=== PATIENT | female | born 1980 | race Caucasian/White ===

== ENCOUNTER → 2017-03-21 | Outpatient (CLI) | payer OTHER ==
[2017-03-21 21:13] LABS: ALT 43 U/L (9-52); AST 26 U/L (14-36); Alkaline Phosphatase 114 U/L (38-126); Anion Gap 16 mmol/L; Blood Urea Nitrogen 14 mg/dL (7-17); Calcium 10.1 mg/dL (8.4-10.2); Carbon Dioxide 23 mmol/L (22-30); Chloride 98 mmol/L (98-107); Glucose 419 mg/dL (74-99); Magnesium 1.5 mg/dL (1.6-2.3); Non-African American GFR(MDRD) >60 (>60 ml/min/1.73 sqM); Potassium 4.3 mmol/L (3.5-5.1); Sodium 137 mmol/L (137-145); Total Bilirubin 0.6 mg/dL (0.2-1.3); Total Protein 7.6 g/dL (6.3-8.2)
== END ==
LOC: MMGSC 14:12
PROVIDERS: ATTEND Family Medicine
DX: R00.2 Palpitations (principal)
CPT/HCPCS: 36415; 80053; 83735; 84439; 84443

== ENCOUNTER 2017-07-18 09:43 | Emergency (ER) | payer MEDICAID, OTHER ==
[2017-07-18] MEDS ORDERED: SODIUM CHLORIDE 0.9% 1,000 ML IV STA ×2 (10:39)
[2017-07-18] MEDS ORDERED: ONDANSETRON 4 MG/2 ML VIAL IVP STA (10:39)
[2017-07-18] MEDS ORDERED: KETOROLAC 30 MG/ML 1 ML VIAL IVP STA (10:39)
--- NOTE | 2017-07-18 10:44 | ED ---
Abdominal Pain HPI - General Chief Complaint: Urogenital Stated Complaint: Abd Pain Time Seen by Provider: 07/18/17 10:34 Source: patient Mode of arrival: ambulatory Limitations: no limitations - History of Present Illness Initial Comments: This 37-year-old white female presents with a complaint of some abdominal pain. It is more severe in the suprapubic region but also diffuse. She has had some frequency, urgency, and dysuria as well. She denies any flank pain. She denies any known fever at home but states that she gets hot flashes. She has been nauseated and vomited once this morning. The symptom onset started yesterday but is more severe today. She denies any previous similar incidents. She is a diabetic and just got her insulin pump 3 months ago. She denies any possibility of as she had a hysterectomy. No other complaints or modifying factors. - Related Data Home Medications Medication Instructions Recorded Confirmed Insulin Aspart [NovoLOG] See Protocol SQ ACHS PRN 07/18/17 07/18/17 Previous Rx's Medication Instructions Recorded Ciprofloxacin HCl [Cipro] 500 mg PO Q12HR #20 tablet 07/18/17 Ondansetron [Zofran ODT] 8 mg PO Q8HR PRN #12 tab 07/18/17 traMADol HCl [Ultram] 50 - 100 mg PO Q6H PRN #15 tab 07/18/17 Allergies Allergy/AdvReac Type Severity Reaction Status Date / Time No Known Allergies Allergy Verified 07/18/17 10:36 Review of Systems ROS Statement: Those systems with pertinent positive or pertinent negative responses have been documented in the HPI. ROS Other: All systems not noted in ROS Statement are negative. Past Medical History Past Medical History: Diabetes Mellitus, GERD/Reflux, Hyperlipidemia, Hypertension Additional Past Medical History / Comment(s): heart murmur History of Any Multi-Drug Resistant Organisms: None Reported Past Surgical History: Tubal Ligation Additional Past Surgical History / Comment(s): E-P study Past Anesthesia/Blood Transfusion Reactions: No Reported Reaction Past Psychological History: No Psychological Hx Reported Smoking Status: Never smoker Past Alcohol Use History: None Reported Past Drug Use History: None Reported - Past Family History Mother Family Medical History: Cancer Father Family Medical History: Deep Vein Thrombosis (DVT) General Exam - General Exam Comments Initial Comments: GENERAL: The patient is well nourished and well hydrated. VITAL SIGNS: Heart rate, blood pressure, respiratory rate reviewed as recorded in nurse's notes. EYES: Pupils are round and reactive. Extraocular movements are intact. No conjunctival / lid redness or swelling. ENT: No external evidence of injury, swelling, or ecchymosis. Airway is patent. Throat is clear. NECK: Nontender. No swelling or evidence of injury. No subcutaneous emphysema. Trachea is midline. No thyroid mass. HEART: Regular rate and rhythm. Good peripheral pulses. LUNGS/CHEST: Breath sounds clear and equal bilaterally. No rales, rhonchi, or wheezes. No ecchymosis, subcutaneous emphysema, or tenderness. ABDOMEN: There is mild diffuse tenderness to the abdomen which is more severe in the suprapubic region. No flank tenderness. No palpable masses or organomegaly. No peritoneal signs. No abdominal wall swelling or ecchymosis. EXTREMITIES: No extremity tenderness. Normal muscle tone and function. No thoracolumbar tenderness. NEUROLOGIC: Sensation is grossly intact. Cranial nerve exam reveals face is symmetrical, tongue is midline, speech is clear. SKIN: No abrasions or ecchymosis is noted. No induration or masses noted. PSYCHIATRIC: Alert and oriented. Appropriate behavior and judgment. Limitations: no limitations Course Vital Signs 07/18/17 10:12 Temperature 99.9 F H Pulse Rate 95 Respiratory 18 Rate Blood Pressure 149/86 O2 Sat by Pulse 97 Oximetry Medical Decision Making - Medical Decision Making The patient was seen and examined. An IV is started and she is hydrated. She receives some Toradol, Zofran, and Rocephin. She is feeling improved on recheck. The urine came back showing significant evidence of infection. The white blood cell count also is elevated. This felt as though she has a urinary tract infection but is stable for discharge home. She also had an x-ray of her abdomen which does not show any acute process. She leaves in no severe distress. - Lab Data Result diagrams: 07/18/17 11:00 07/18/17 11:00 Lab Results 07/18/17 07/18/17 07/18/17 Range/Units 11:00 11:00 11:00 WBC 16.7 H (3.8-10.6) k/uL RBC 4.79 (3.80-5.40) m/uL Hgb 14.0 (11.4-16.0) gm/dL Hct 39.6 (34.0-46.0) % MCV 82.6 (80.0-100.0) fL MCH 29.3 (25.0-35.0) pg MCHC 35.4 (31.0-37.0) g/dL RDW 13.3 (11.5-15.5) % Plt Count 322 (150-450) k/uL Neutrophils % 80 % Lymphocytes % 12 % Monocytes % 4 % Eosinophils % 2 % Basophils % 0 % Neutrophils # 13.4 H (1.3-7.7) k/uL Lymphocytes # 2.0 (1.0-4.8) k/uL Monocytes # 0.7 (0-1.0) k/uL Eosinophils # 0.4 (0-0.7) k/uL Basophils # 0.1 (0-0.2) k/uL Sodium 140 (137-145) mmol/L Potassium 4.2 (3.5-5.1) mmol/L Chloride 106 (98-107) mmol/L Carbon Dioxide 23 (22-30) mmol/L Anion Gap 11 mmol/L BUN 13 (7-17) mg/dL Creatinine 0.63 (0.52-1.04) mg/dL Est GFR (MDRD) Af Amer >60 (>60 ml/min/1.73 sqM) Est GFR (MDRD) Non-Af >60 (>60 ml/min/1.73 sqM) Glucose 135 H (74-99) mg/dL Calcium 9.6 (8.4-10.2) mg/dL Total Bilirubin 0.6 (0.2-1.3) mg/dL AST 21 (14-36) U/L ALT 42 (9-52) U/L Alkaline Phosphatase 103 (38-126) U/L Total Protein 7.4 (6.3-8.2) g/dL Albumin 4.4 (3.5-5.0) g/dL Amylase 34 (30-110) U/L Lipase 78 (23-300) U/L Urine Color Light Yellow Urine Appearance Cloudy H (Clear) Urine pH 5.5 (5.0-8.0) Ur Specific [place] 1.012 (1.001-1.035) Urine Protein 1+ H (Negative) Urine Glucose (UA) Negative (Negative) Urine Ketones Negative (Negative) Urine Blood Moderate H (Negative) Urine Nitrite Positive H (Negative) Urine Bilirubin Negative (Negative) Urine Urobilinogen <2.0 (<2.0) mg/dL Ur Leukocyte Esterase Large H (Negative) Urine RBC 3 (0-5) /hpf Urine WBC 122 H (0-5) /hpf Urine WBC Clumps Many H (None) /hpf Ur Squamous Epith Cells 2 (0-4) /hpf Urine Bacteria Moderate H (None) /hpf Urine Mucus Rare H (None) /hpf Disposition Clinical Impression: Urinary tract infection, Fever, Abdominal pain, Hypertension, Nausea Disposition: HOME SELF-CARE Condition: Good Instructions: Abdominal Pain (ED), Urinary Tract Infection in Women (ED) Prescriptions: Ciprofloxacin HCl [Cipro] 500 mg PO Q12HR #20 tablet Ondansetron [Zofran ODT] 8 mg PO Q8HR PRN #12 tab PRN Reason: Nausea traMADol HCl [Ultram] 50 - 100 mg PO Q6H PRN #15 tab PRN Reason: Pain Referrals: Gayle Rouse MD [Primary Care Provider] - 1-2 days Time of Disposition: 11:50
[2017-07-18 11:20] LABS: Basophils # (A) 0.1 k/uL (0-0.2); Basophils % (A) 0 %; CH 28.9; CHCM 35.1; Eosinophils # (A) 0.4 k/uL (0-0.7); Eosinophils % (A) 2 %; HCT 39.6 % (34.0-46.0); Luc # (Auto) 0.13; Luc % (Auto) 1; Lymphocytes % (A) 12 %; MCH 29.3 pg (25.0-35.0); MCHC 35.4 g/dL (31.0-37.0); MCV 82.6 fL (80.0-100.0); Mean Platelet Volume 8.1; Monocytes # (A) 0.7 k/uL (0-1.0); Monocytes % (A) 4 %; Neutrophils # (A) 13.4 k/uL (1.3-7.7); Neutrophils % (A) 80 %; RBC 4.79 m/uL (3.80-5.40); RDW 13.3 % (11.5-15.5); WBC 16.7 k/uL (3.8-10.6); WBC (Perox) 16.81
[2017-07-18 11:27] LABS: ALT 42 U/L (9-52); AST 21 U/L (14-36); Alkaline Phosphatase 103 U/L (38-126); Amylase 34 U/L (30-110); Anion Gap 11 mmol/L; Blood Urea Nitrogen 13 mg/dL (7-17); Calcium 9.6 mg/dL (8.4-10.2); Carbon Dioxide 23 mmol/L (22-30); Chloride 106 mmol/L (98-107); Glucose 135 mg/dL (74-99); Non-African American GFR(MDRD) >60 (>60 ml/min/1.73 sqM); Potassium 4.2 mmol/L (3.5-5.1); Sodium 140 mmol/L (137-145); Total Bilirubin 0.6 mg/dL (0.2-1.3); Total Protein 7.4 g/dL (6.3-8.2)
--- NOTE | 2017-07-18 11:32 | XR ---
EXAMINATION TYPE: XR abdomen acute w cxr DATE OF EXAM: 07/18/2017 COMPARISON: NONE HISTORY: Abdomen pain TECHNIQUE: Chest x-ray, upright and supine films obtained of the abdomen. FINDINGS: Chest x-ray shows no acute cardiopulmonary disease is rotated. There is no evidence for pneumoperitoneum. The bowel gas pattern is unremarkable as there is air throughout nondilated small and large bowel. No sizeable air fluid levels. No mass effects are seen. No unusual calcifications. There is mild spinal curvature, degenerative disc changes in the lumbar s pine. IMPRESSION: Unremarkable study
[2017-07-18 11:37] LABS: Appearance,Urine Cloudy (Clear); Bacteria,Urine Moderate /hpf; Bilirubin,Urine Negative (Negative); Glucose,Urine (UA) Negative (Negative); Ketones,Urine Negative (Negative); Leukocyte Esterase,Urine Large (Negative); Mucus,Urine Rare /hpf; Nitrite,Urine Positive (Negative); PH, Urine 5.5 (5.0-8.0); Particle Count 6186; Protein,Urine 1+ (Negative); RBC,Urine 3 /hpf (0-5); Specific Gravity,Urine 1.012 (1.001-1.035); Squamous Epithelial Cell,Urine 2 /hpf (0-4); UA Billing (MACRO vs. MICRO) MICRO; Urobilinogen,Urine <2.0 mg/dL (<2.0); WBC,Urine 122 /hpf (0-5)
[2017-07-18 12:19] VITALS: BP 139/68; PULSE 59; RESP 20; TEMP 98.7
== END 2017-07-18 12:26 | disposition home or self-care (01) ==
LOC: EC 09:43
DX: N39.0 Urinary tract infection, site not specified (principal); R11.2 Nausea with vomiting, unspecified; I10 Essential (primary) hypertension; E11.9 Type 2 diabetes mellitus without complications; Z98.51 Tubal ligation status; Z90.710 Acquired absence of both cervix and uterus; Z96.41 Presence of insulin pump (external) (internal)
CPT/HCPCS: 36415; 80053; 82150; 83690; 85025; 81001; 87040; 87086; 87077; 87186; 74022; 99284; 96365; 96375 ×2; J2405; J0696; J1885

== ENCOUNTER → 2017-07-22 | Outpatient (CLI) | payer MEDICAID, OTHER ==
[2017-07-22 19:56] LABS: Basophils # (A) 0.1 k/uL (0-0.2); Basophils % (A) 1 %; CH 28.8; CHCM 33.6; Eosinophils # (A) 0.5 k/uL (0-0.7); Eosinophils % (A) 6 %; HDW 2.87; HGB 14.4 gm/dL (11.4-16.0); Luc # (Auto) 0.09; Luc % (Auto) 1; Lymphocytes # (A) 2.5 k/uL (1.0-4.8); Lymphocytes % (A) 30 %; MCH 28.9 pg (25.0-35.0); MCHC 33.4 g/dL (31.0-37.0); MCV 86.4 fL (80.0-100.0); Mean Platelet Volume 8.7; Monocytes # (A) 0.4 k/uL (0-1.0); Monocytes % (A) 5 %; Neutrophils % (A) 58 %; RBC 4.97 m/uL (3.80-5.40); RDW 13.4 % (11.5-15.5); WBC 8.6 k/uL (3.8-10.6); WBC (Perox) 8.12
[2017-07-22 20:10] LABS: ALT 54 U/L (9-52); AST 31 U/L (14-36); Alkaline Phosphatase 106 U/L (38-126); Anion Gap 12 mmol/L; Blood Urea Nitrogen 12 mg/dL (7-17); Calcium 9.9 mg/dL (8.4-10.2); Carbon Dioxide 24 mmol/L (22-30); Chloride 104 mmol/L (98-107); Cholesterol 276 mg/dL (<200); Glucose 118 mg/dL (74-99); HDL Cholesterol 29 mg/dL (40-60); Non-African American GFR(MDRD) >60 (>60 ml/min/1.73 sqM); Potassium 4.6 mmol/L (3.5-5.1); Sodium 140 mmol/L (137-145); Total Bilirubin 0.5 mg/dL (0.2-1.3); Total Protein 7.6 g/dL (6.3-8.2)
== END ==
LOC: MMGSC 11:34
PROVIDERS: ATTEND Family Medicine
DX: E78.5 Hyperlipidemia, unspecified (principal); N12 Tubulo-interstitial nephritis, not specified as acute or chronic
CPT/HCPCS: 36415; 80053; 80061; 85025

== ENCOUNTER → 2018-06-25 | Outpatient (CLI) | payer MEDICAID, OTHER ==
--- NOTE | 2018-06-25 22:34 | MR ---
EXAMINATION TYPE: MR knee RT wo con DATE OF EXAM: 06/25/2018 COMPARISON: Outside right knee x-ray May 12, 2018 HISTORY: Right knee pain per order. Inner knee pain with swelling for 2 to 3 months after running inj ury TECHNIQUE: Multiplanar, multisequence images of the knee is performed without IV contrast. FINDINGS: MEDIAL MENISCUS: Anterior and posterior horns are intact without tear. LATERAL MENISCUS: Anterior and posterior horns are intact without tear. CRUCIATE LIGAMENTS: The anterior and posterior cruciate ligaments are intact and unremarkable. COLLATERAL LIGAMENTS: The medial collateral ligament and lateral collateral ligament complex are inta ct and unremarkable. EXTENSOR MECHANISM: Visualized quadriceps and patellar tendons are intact. EFFUSION: No significant suprapatellar joint effusion. POPLITEAL CYST: There is small to moderate size popliteal/[place] cyst measuring 4.3 cm long axis sagit antony image 10. TRICOMPARTMENT SPACES: Tricompartmental joint spaces are fairly well-maintained. No significant spurr ing is seen. CARTILAGE: Tricompartment articular cartilage is maintained. BONE MARROW SIGNAL: No focal abnormal marrow signal is appreciated. OTHER: No additional significant abnormality is appreciated. IMPRESSION: No meniscal or ligamentous tear is seen. Small to moderate sized popliteal cyst otherwise unremarkable study.
== END | disposition home or self-care (01) ==
LOC: RADMRIMAIN 16:27
PROVIDERS: ATTEND Orthopaedic Surgery
DX: M71.21 Synovial cyst of popliteal space [Baker], right knee (principal)

== ENCOUNTER → 2018-07-31 | Outpatient (CLI) | payer OTHER ==
--- NOTE | 2018-07-31 15:36 | XR ---
EXAMINATION TYPE: XR shoulder complete RT DATE OF EXAM: 07/31/2018 CLINICAL HISTORY: Right shoulder pain after pulling injury. TECHNIQUE: Three views of the right shoulder are obtained. COMPARISON: None. FINDINGS: There is no acute fracture/dislocation evident in the right shoulder. There is type II mimi nsloping acromion. There is mild to moderate joint space loss and mild spurring at acromioclavicular joint. There are subchondral cystic change in the superolateral humeral head. The visualized ribs are intact and unremarkable. IMPRESSION: There is no acute fracture or dislocation in the right shoulder.
== END | disposition home or self-care (01) ==
LOC: RADXRMAIN 15:19
PROVIDERS: ATTEND Emergency Medicine
DX: S43.401A Unspecified sprain of right shoulder joint, initial encounter (principal)

== ENCOUNTER → 2018-08-08 | Outpatient (CLI) | payer OTHER ==
--- NOTE | 2018-08-09 14:09 | MR ---
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 FINDINGS: Rotator Cuff: Small amount fluid is in the subdeltoid bursa. There is signal crossing the distal supr aspinatus tendon. Small perforation is likely present. No tendon or muscle retraction is evident. Acromioclavicular Joint: Hypertrophy with mild inferior impression. This can contribute to impingemen t syndrome. The acromion is downward sloping which also can contribute to impingement syndrome. Glenohumeral Joint: Humeral head articulates with the glenoid. Labrum: The labrum appears grossly intact given limitation of non-arthrogram study. Biceps Tendon: The long head of biceps is in normal location within bicipital groove. Bone marrow signal: No focal abnormal marrow signal is appreciated. Other: No additional significant abnormality is appreciated. IMPRESSION: Findings suggestive for a small perforation to the distal supraspinatus tendon. No tendon or muscle r etraction is evident. 2. Downward sloping acromion with mild acromioclavicular joint hypertrophy, each of which can contrib ritika to impingement syndrome.
== END | disposition home or self-care (01) ==
LOC: RADMRIMAIN 12:10
PROVIDERS: ATTEND Emergency Medicine
DX: M89.311 Hypertrophy of bone, right shoulder (principal)

== ENCOUNTER 2018-08-17 12:44 | Inpatient (IN) | payer MEDICAID, OTHER ==
[2018-08-17 14:59] LABS: Appearance,Urine Clear (Clear); Bilirubin,Urine Negative (Negative); Blood,Urine Trace (Negative); Color,Urine Light Yellow; Glucose,Urine (UA) 4+ (Negative); Leukocyte Esterase,Urine Negative (Negative); Mucus,Urine Rare /hpf; Nitrite,Urine Negative (Negative); PH, Urine 5.5 (5.0-8.0); Protein,Urine 1+ (Negative); RBC,Urine 1 /hpf (0-5); Squamous Epithelial Cell,Urine 1 /hpf (0-4); Urobilinogen,Urine <2.0 mg/dL (<2.0); WBC,Urine 1 /hpf (0-5)
[2018-08-17] MEDS ORDERED: SODIUM CHLORIDE 0.9% 1,000 ML IV ONE (14:59)
[2018-08-17 15:02] LABS: Ketones,Urine 4+ (Negative)
[2018-08-17 15:20] LABS: Basophils # (A) 0.1 k/uL (0-0.2); Basophils % (A) 0 %; Eosinophils # (A) 0.2 k/uL (0-0.7); Eosinophils % (A) 1 %; HCT 46.4 % (34.0-46.0); HGB 15.8 gm/dL (11.4-16.0); Lymphocytes # (A) 2.2 k/uL (1.0-4.8); Lymphocytes % (A) 14 %; MCHC 34.1 g/dL (31.0-37.0); MCV 82.2 fL (80.0-100.0); Monocytes # (A) 0.4 k/uL (0-1.0); Monocytes % (A) 3 %; Neutrophils # (A) 13.2 k/uL (1.3-7.7); Neutrophils % (A) 81 %; Platelet Count 378 k/uL (150-450); RBC 5.64 m/uL (3.80-5.40); RDW 13.2 % (11.5-15.5); WBC 16.3 k/uL (3.8-10.6)
[2018-08-17 15:34] LABS: ALT 50 U/L (9-52); AST 27 U/L (14-36); Albumin 5.1 g/dL (3.5-5.0); Alkaline Phosphatase 162 U/L (38-126); Anion Gap 23 mmol/L; Blood Urea Nitrogen 16 mg/dL (7-17); Calcium 10.4 mg/dL (8.4-10.2); Carbon Dioxide 16 mmol/L (22-30); Chloride 95 mmol/L (98-107); Glucose 444 mg/dL (74-99); Magnesium 2.1 mg/dL (1.6-2.3); Sodium 134 mmol/L (137-145); Total Bilirubin 0.9 mg/dL (0.2-1.3); Total Protein 8.7 g/dL (6.3-8.2)
[2018-08-17] MEDS ORDERED: KETOROLAC 30 MG/ML 1 ML VIAL IM STA (15:35)
[2018-08-17] MEDS ORDERED: ONDANSETRON 4 MG/2 ML VIAL IVP STA (15:36)
[2018-08-17] MEDS ORDERED: INSULIN REGULAR BOLUS (FROM DRIP BAG) IV ONE (15:40)
--- NOTE | 2018-08-17 15:44 | ED ---
General Adult HPI - General Chief complaint: Recheck/Abnormal Lab/Rx Stated complaint: Diabetic problems, heaadache Time Seen by Provider: 08/17/18 14:30 Source: patient Mode of arrival: ambulatory Limitations: no limitations - History of Present Illness Initial comments: 38-year-old female with past medical history of type 2 diabetes who is insulin- dependent, HTN, Padron Steph Bhakta presents today for chief complaint of elevated blood sugar and polyuria. Patient states that she was recently treated at [facility] for cellulitis of the right elbow on 2017, she was given clindamycin in the emergency department where she had an anaphylactic reaction patient was given steroids upon discharge. She states that since she is in taking his oral steroids her glucose readings have been in the 400s consistently for the past 3 days. Patient states that her baseline is 200. Patient states that she felt general malaise and some nausea today and was concerned about her elevated blood glucoses she presented for evaluation. Upon review of systems patient does admit to a dull frontal headache, she states this is not the worst headache of her life and she has had much worse. She denies any associated symptoms of a headache. Of note patient states that the right elbow cellulitis has resolved almost completely. Upon arrival to the emergency department patient does not appear in acute distress, no signs of respiratory distress and vital signs stable. Patient denies any recent fever, chills, shortness of breath, chest pain, back pain, abdominal pain, numbness or tingling, dysuria or hematuria, constipation or diarrhea, or visual changes, or any other complaints. - Related Data Home Medications Medication Instructions Recorded Confirmed Cephalexin [Keflex] 250 mg PO Q8HR 08/17/18 08/17/18 Metoclopramide [Reglan] 10 mg PO ACHS 08/17/18 08/17/18 Previous Rx's Medication Instructions Recorded Aspirin 81 mg PO DAILY #30 chewable 08/19/18 Atorvastatin [Lipitor] 40 mg PO HS #30 tablet 08/19/18 INSULIN LISPRO (For Pump) [humaLOG 0.01 units SQ-PUMP CONTINUOUS #3 08/19/18 (For Pump)] vial Allergies Allergy/AdvReac Type Severity Reaction Status Date / Time clindamycin Allergy Anaphylaxis Verified 08/17/18 14:33 Review of Systems ROS Statement: Those systems with pertinent positive or pertinent negative responses have been documented in the HPI. ROS Other: All systems not noted in ROS Statement are negative. Constitutional: Denies: fever, chills, night sweats Eyes: Denies: vision change ENT: Denies: ear pain, throat pain Respiratory: Denies: cough, dyspnea, wheezes, hemoptysis, stridor Cardiovascular: Denies: chest pain, palpitations, dyspnea on exertion Gastrointestinal: Reports: nausea. Denies: abdominal pain, vomiting, diarrhea, constipation, hematemesis, melena, hematochezia Genitourinary: Reports: frequency. Denies: urgency, dysuria, hematuria, discharge Musculoskeletal: Denies: back pain Skin: Denies: rash Neurological: Reports: headache (mild, dull aching headache-generalized in location). 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, VRE Date of last positivie culture/infection: 10/2017 MDRO Source:: urine Past Surgical History: Hysterectomy, Tubal Ligation Additional Past Surgical History / Comment(s): E-P study Past Anesthesia/Blood Transfusion Reactions: No Reported Reaction Past Psychological History: No Psychological Hx Reported Smoking Status: Never smoker Past Alcohol Use History: None Reported Past Drug Use History: None Reported - Past Family History Mother Family Medical History: Cancer Father Family Medical History: Deep Vein Thrombosis (DVT) General Exam - General Exam Comments Initial Comments: General: The patient is awake and alert, in no distress, and does not appear acutely ill. Eye: Pupils are equal, round and reactive to light, extra-ocular movements are intact. No nystagmus. There is normal conjunctiva bilaterally. No signs of icterus. Ears, nose, mouth and throat: There are moist mucous membranes and no oral lesions. Neck: The neck is supple, there is no tenderness or JVD. Cardiovascular: There is a regular rate and rhythm. No murmur, rub or gallop is appreciated. Respiratory: Lungs are clear to auscultation, respirations are non-labored, breath sounds are equal. No wheezes, stridor, rales, or rhonchi. Gastrointestinal: Soft, non-distended, non-tender abdomen without masses or organomegaly noted. There is no rebound or guarding present. No CVA tenderness. Bowel sounds are unremarkable. Musculoskeletal: Normal ROM, no tenderness. Strength 5/5. Sensation intact. Radial pulses equal bilaterally 2+. Neurological: A&O x 3. CN II-XII intact, There are no obvious motor or sensory deficits. Coordination appears grossly intact. Speech is normal. Skin: Skin is warm and dry and no rashes or lesions are noted. Small 2cm circular area of erythema of the right elbow, no warmth to palpation, palpable abscess or signs of streaking. Psychiatric: Cooperative, appropriate mood & affect, normal judgment. Limitations: no limitations Course Vital Signs 08/17/18 08/17/18 08/17/18 12:50 16:07 17:07 Temperature 97.6 F 98.3 F 98.1 F Pulse Rate 103 H 89 85 Respiratory 18 18 18 Rate Blood Pressure 161/83 136/86 139/86 O2 Sat by Pulse 97 97 97 Oximetry 08/17/18 08/17/18 18:20 20:41 Temperature 97.4 F L Pulse Rate 89 74 Respiratory 18 18 Rate Blood Pressure 155/83 145/73 O2 Sat by Pulse 97 97 Oximetry EKG Findings - EKG Comments: EKG Findings:: Ventricular rate 87 bpm, CO interval 122 ms, QRS duration 76 ms, QT/QTC 358/4:30 milliseconds this appears to be normal sinus, no specific ST or T wave abnormalities. Normal EKG. Compared with 10/17/17. Medical Decision Making - Medical Decision Making 38yo female with cc of elevated blood glucose concerning for DKA. Pt appers well on exam, no signs of respiratory distress. Patient does not meet sepsis criteria initial heart rate elevated however repeat EKG was 81 bpm. Patient initial elevation heart rate is most likely due to DKA. Infection of the right elbow is near resolution. EKG revealed no change in comparison with previous. Labs as noted above (+) acetone, ketones, K+ and Mag WNL 23 anion gap. Pt given 1,000 mL bolus 0.9% and 8.8U bolus of insulin with .1u/kg per hour. Case discussed in detail with Dr. Bridges who spoke with Dr. Mahan, who accepted admission on telemetry, pt was evaluated by Dr. Patterson in the emergency department. Repeat glucose readings as indicated above. Pt care was continued with Dr. De Oliveira after case discussed in detail at 19:30 until pt is transferred to the floor. - Lab Data Result diagrams: 08/19/18 10:24 08/19/18 10:24 Lab Results 08/17/18 08/17/18 08/17/18 Range/Units 14:44 15:11 15:11 WBC 16.3 H (3.8-10.6) k/uL RBC 5.64 H (3.80-5.40) m/uL Hgb 15.8 (11.4-16.0) gm/dL Hct 46.4 H (34.0-46.0) % MCV 82.2 (80.0-100.0) fL MCH 28.0 (25.0-35.0) pg MCHC 34.1 (31.0-37.0) g/dL RDW 13.2 (11.5-15.5) % Plt Count 378 (150-450) k/uL Neutrophils % 81 % Lymphocytes % 14 % Monocytes % 3 % Eosinophils % 1 % Basophils % 0 % Neutrophils # 13.2 H (1.3-7.7) k/uL Lymphocytes # 2.2 (1.0-4.8) k/uL Monocytes # 0.4 (0-1.0) k/uL Eosinophils # 0.2 (0-0.7) k/uL Basophils # 0.1 (0-0.2) k/uL Sodium 134 L (137-145) mmol/L Potassium 5.0 (3.5-5.1) mmol/L Chloride 95 L (98-107) mmol/L Carbon Dioxide 16 L (22-30) mmol/L Anion Gap 23 mmol/L BUN 16 (7-17) mg/dL Creatinine 0.66 (0.52-1.04) mg/dL Est GFR (CKD-EPI)AfAm >90 (>60 ml/min/1.73 sqM) Est GFR (CKD-EPI)NonAf >90 (>60 ml/min/1.73 sqM) Glucose 444 H (74-99) mg/dL Estimated Ave Glu mg/dL Hemoglobin A1c (4.0-6.0) % Calcium 10.4 H (8.4-10.2) mg/dL Magnesium 2.1 (1.6-2.3) mg/dL Total Bilirubin 0.9 (0.2-1.3) mg/dL AST 27 (14-36) U/L ALT 50 (9-52) U/L Alkaline Phosphatase 162 H (38-126) U/L Total Protein 8.7 H (6.3-8.2) g/dL Albumin 5.1 H (3.5-5.0) g/dL Urine Color Light Yellow Urine Appearance Clear (Clear) Urine pH 5.5 (5.0-8.0) Ur Specific [place] 1.030 (1.001-1.035) Urine Protein 1+ H (Negative) Urine Glucose (UA) 4+ H (Negative) Urine Ketones 4+ H (Negative) Urine Blood Trace H (Negative) Urine Nitrite Negative (Negative) Urine Bilirubin Negative (Negative) Urine Urobilinogen <2.0 (<2.0) mg/dL Ur Leukocyte Esterase Negative (Negative) Urine RBC 1 (0-5) /hpf Urine WBC 1 (0-5) /hpf Ur Squamous Epith Cells 1 (0-4) /hpf Urine Mucus Rare H (None) /hpf Acetone, Qual Positive (Negative) 08/17/18 Range/Units 15:11 WBC (3.8-10.6) k/uL RBC (3.80-5.40) m/uL Hgb (11.4-16.0) gm/dL Hct (34.0-46.0) % MCV (80.0-100.0) fL MCH (25.0-35.0) pg MCHC (31.0-37.0) g/dL RDW (11.5-15.5) % Plt Count (150-450) k/uL Neutrophils % % Lymphocytes % % Monocytes % % Eosinophils % % Basophils % % Neutrophils # (1.3-7.7) k/uL Lymphocytes # (1.0-4.8) k/uL Monocytes # (0-1.0) k/uL Eosinophils # (0-0.7) k/uL Basophils # (0-0.2) k/uL Sodium (137-145) mmol/L Potassium (3.5-5.1) mmol/L Chloride (98-107) mmol/L Carbon Dioxide (22-30) mmol/L Anion Gap mmol/L BUN (7-17) mg/dL Creatinine (0.52-1.04) mg/dL Est GFR (CKD-EPI)AfAm (>60 ml/min/1.73 sqM) Est GFR (CKD-EPI)NonAf (>60 ml/min/1.73 sqM) Glucose (74-99) mg/dL Estimated Ave Glu mg/dL 258 Hemoglobin A1c 10.6 H (4.0-6.0) % Calcium (8.4-10.2) mg/dL Magnesium (1.6-2.3) mg/dL Total Bilirubin (0.2-1.3) mg/dL AST (14-36) U/L ALT (9-52) U/L Alkaline Phosphatase (38-126) U/L Total Protein (6.3-8.2) g/dL Albumin (3.5-5.0) g/dL Urine Color Urine Appearance (Clear) Urine pH (5.0-8.0) Ur Specific [place] (1.001-1.035) Urine Protein (Negative) Urine Glucose (UA) (Negative) Urine Ketones (Negative) Urine Blood (Negative) Urine Nitrite (Negative) Urine Bilirubin (Negative) Urine Urobilinogen (<2.0) mg/dL Ur Leukocyte Esterase (Negative) Urine RBC (0-5) /hpf Urine WBC (0-5) /hpf Ur Squamous Epith Cells (0-4) /hpf Urine Mucus (None) /hpf Acetone, Qual (Negative) Disposition Clinical Impression: DKA, type 2 Disposition: ADMITTED IP TO THIS [facility] Condition: Stable Decision to Admit Reason: Admit from EC Decision Date: 08/17/18 Decision Time: 15:48
[2018-08-17 16:02] LABS: VBG PH 7.33 (7.31-7.41)
[2018-08-17] MEDS: INSULIN REGULAR 100 UNIT in SODIUM CHLORIDE 0.9% 100 ML IV SCH (16:02)
[2018-08-17] MEDS: SODIUM CHLORIDE 0.9% 1,000 ML IV SCH ×4 (16:04→22:43)
[2018-08-17 16:48] LABS: Glucose,Whole Blood 334 mg/dL (75-99)
--- NOTE | 2018-08-17 17:01 | P.HPIM ---
History of Present Illness H&P Date: 08/17/18 The patient is a 38-year-old female with a PMH of Type 2 DM (dx 2008, insulin dependent, on Insulin pump), Bkai-[id number] syndrome s/p ablation, GERD, HLD, and HTN, never hospitalized previously for DM presented to the ED for increased thirst, polyuria, polydipsia, and lightheadedness. The patient notes that she was seen at the [facility] for cellulitis of the right elbow on 08/14/2018 and while in the ED was given clindamycin to which she had an anaphylactic reaction and was subsequently given IV steroids and was discharged with oral steroids on the same day. Since then, the patient notes that her fingersticks have been in the 400s, though they usually are in the 200s. Since yesterday, the patient noticed that she had significantly increased urinary frequency with increased thirst and dizziness which prompted her to come to the ED. She also endorsed a dull frontal headache ongoing since yesterday, 4 out of 10, nonradiating, with no alleviating or exacerbating factors. She otherwise denied fever, chills, cough, or chest pain. She did endorse chronic exertional dyspnea but notes that it is unchanged. She also endorsed nausea but denied any abdominal pain, vomiting, diarrhea, sick contacts , recent travel. The patient had an extensive workup in the ED which showed a glucose of 444, anion gap 23, CO2 16, WBC 16.3, calcium 10.4, and positive acetone. Review of Systems Pertinent positives and negatives as discussed in HPI, a complete review of systems was performed and all other systems are negative. 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, VRE Date of last positivie culture/infection: 10/2017 MDRO Source:: urine Past Surgical History: Hysterectomy, Tubal Ligation Additional Past Surgical History / Comment(s): E-P study Past Anesthesia/Blood Transfusion Reactions: No Reported Reaction Past Psychological History: No Psychological Hx Reported Smoking Status: Never smoker Past Alcohol Use History: None Reported Past Drug Use History: None Reported - Past Family History Mother Family Medical History: Cancer Father Family Medical History: Deep Vein Thrombosis (DVT) Medications and Allergies Home Medications Medication Instructions Recorded Confirmed Type Cephalexin [Keflex] 250 mg PO Q8HR 08/17/18 08/17/18 History INSULIN LISPRO (For Pump) [humaLOG 0.01 units SQ-PUMP CONTINUOUS 08/17/18 History (For Pump)] Metoclopramide [Reglan] 10 mg PO ACHS 08/17/18 08/17/18 History predniSONE 60 mg PO DAILY 08/17/18 08/17/18 History Allergies Allergy/AdvReac Type Severity Reaction Status Date / Time clindamycin Allergy Anaphylaxis Verified 08/17/18 14:33 Physical Exam Vitals: Vital Signs Temp Pulse Resp BP Pulse Ox 08/17/18 16:07 98.3 F 89 18 136/86 97 08/17/18 12:50 97.6 F 103 H 18 161/83 97 Intake and Output 08/17/18 08/17/18 08/17/18 06:59 14:59 22:59 Other: Weight 88.451 kg General: [non toxic], [no distress], [appears at stated age], [obese] Derm: [abdominal striae noted] , R elbow cellulitis almost resolved, [no unusual ecchymoses], [warm], [dry] Head: [atraumatic], [normocephalic], [symmetric] Eyes: [EOMI], [no lid lag], [anicteric sclera], [pupils equal round reactive to light] ENT: [Nose and ears atraumatic], [no thrush], [no pharyngeal erythema] Neck: [No thyromegaly], [no cervical lymphadenopathy], [trachea midline], [ supple] Mouth: [no lip lesion], [mucus membranes dry] Cardiovascular: [S1S2 reg], [no murmur], [positive posterior tibial pulse bilateral], [no edema], [capillary refill less than 2 seconds] Lungs: [CTA bilateral], [no rhonchi, no rales] , [no accessory muscle use] Abdominal: [soft], [ nontender to palpation], [no guarding], [no appreciable organomegaly], [normal bowel sounds] Ext: [no gross muscle atrophy], [muscle strength 5 out of 5 in all 4 extremities grossly], [no contractures], Neuro: [ CN II-XI grossly intact], [light touch intact all 4 extremities], [ finger to nose within normal limits], Psych: [Alert], [oriented], [appropriate affect] Results CBC & Chem 7: 08/17/18 15:11 08/17/18 15:11 Labs: Abnormal Lab Results - Last 24 Hours (Table) 08/17/18 08/17/18 08/17/18 Range/Units 14:44 15:11 15:11 WBC 16.3 H (3.8-10.6) k/uL RBC 5.64 H (3.80-5.40) m/uL Hct 46.4 H (34.0-46.0) % Neutrophils # 13.2 H (1.3-7.7) k/uL VBG pCO2 (37-51) mmHg VBG HCO3 (24-28) mmol/L Sodium 134 L (137-145) mmol/L Chloride 95 L (98-107) mmol/L Carbon Dioxide 16 L (22-30) mmol/L Glucose 444 H (74-99) mg/dL Calcium 10.4 H (8.4-10.2) mg/dL Alkaline Phosphatase 162 H (38-126) U/L Total Protein 8.7 H (6.3-8.2) g/dL Albumin 5.1 H (3.5-5.0) g/dL Urine Protein 1+ H (Negative) Urine Glucose (UA) 4+ H (Negative) Urine Ketones 4+ H (Negative) Urine Blood Trace H (Negative) Urine Mucus Rare H (None) /hpf 08/17/18 Range/Units 15:54 WBC (3.8-10.6) k/uL RBC (3.80-5.40) m/uL Hct (34.0-46.0) % Neutrophils # (1.3-7.7) k/uL VBG pCO2 30 L (37-51) mmHg VBG HCO3 15 L (24-28) mmol/L Sodium (137-145) mmol/L Chloride (98-107) mmol/L Carbon Dioxide (22-30) mmol/L Glucose (74-99) mg/dL Calcium (8.4-10.2) mg/dL Alkaline Phosphatase (38-126) U/L Total Protein (6.3-8.2) g/dL Albumin (3.5-5.0) g/dL Urine Protein (Negative) Urine Glucose (UA) (Negative) Urine Ketones (Negative) Urine Blood (Negative) Urine Mucus (None) /hpf Assessment and Plan Plan: Diabetic ketoacidosis, in setting of steroid use - Insulin drip at 0.1 U/kg/hr - C/w Normal saline 250 cc/hr. Will give 2 L additional boluses - C/w DKA protocol - FS q1h - Check A1C - Hold off on further steroid use - Zofran prn for nausea - NPO for now R elbow cellulitis, gaby resolved - C/w Keflex 250 mg q8h for now Hx of HTN and HLD - Diet controlled - Check lipid panel DVT//GI prophylaxis - Heparin - Protonix The patient is admitted with an anticipated greater than 2 midnight stay for evaluation of []. CODE STATUS:Full-code Discussed with: Patient, father, son Anticipated discharge date: 08/19/[address]: Home A total of 60 minutes was spent on the care of this complex patient more than 50 % of the time was spent in counseling and care coordination.
[2018-08-17 17:12] LABS: Glucose,Whole Blood 320 mg/dL (75-99)
[2018-08-17] MEDS: D5-0.45% NACL WITH KCL 20MEQ/L 1,000 ML IV SCH (18:20)
[2018-08-17 18:43] LABS: Glucose,Whole Blood 279 mg/dL (75-99)
[2018-08-17 19:04] LABS: Glucose,Whole Blood 299 mg/dL (75-99)
[2018-08-17] MEDS ORDERED: SODIUM CHLORIDE 0.9% 2,000 ML IV ONE (19:17)
[2018-08-17 19:31] LABS: Anion Gap 14 mmol/L; Blood Urea Nitrogen 16 mg/dL (7-17); Carbon Dioxide 18 mmol/L (22-30); Chloride 105 mmol/L (98-107); Glucose 274 mg/dL (74-99); Phosphorus 3.3 mg/dL (2.5-4.5); Potassium 4.2 mmol/L (3.5-5.1); Sodium 137 mmol/L (137-145)
[2018-08-17 20:24] LABS: Glucose,Whole Blood 244 mg/dL (75-99)
[2018-08-17 21:04] LABS: Glucose,Whole Blood 251 mg/dL (75-99)
[2018-08-17 21:53] LABS: Glucose,Whole Blood 249 mg/dL (75-99)
[2018-08-17] MEDS ORDERED: NALOXONE 0.4 MG/ML 1 ML VIAL IV PRN (21:55)
[2018-08-17 22:14] LABS: Hemoglobin A1C 10.6 % (4.0-6.0)
[2018-08-17 22:37] VITALS: BMI 36.8
[2018-08-17 23:15] LABS: Anion Gap 9 mmol/L; Blood Urea Nitrogen 15 mg/dL (7-17); Carbon Dioxide 18 mmol/L (22-30); Chloride 108 mmol/L (98-107); Glucose 236 mg/dL (74-99); Phosphorus 2.7 mg/dL (2.5-4.5); Potassium 4.3 mmol/L (3.5-5.1); Sodium 135 mmol/L (137-145)
[2018-08-17 23:19] LABS: Glucose,Whole Blood 227 mg/dL (75-99)
[2018-08-18 00:30] LABS: Glucose,Whole Blood 208 mg/dL (75-99)
[2018-08-18] MEDS: CEPHALEXIN 250 MG CAP PO SCH ×3 (00:30→16:21)
[2018-08-18] MEDS: SODIUM CHLORIDE 0.9% 1,000 ML IV SCH ×4 (01:39→12:20)
[2018-08-18] MEDS: D5-0.45% NACL WITH KCL 20MEQ/L 1,000 ML IV SCH ×4 (01:39→12:19)
[2018-08-18 01:49] LABS: Glucose,Whole Blood 175 mg/dL (75-99)
[2018-08-18 02:28] LABS: Appearance,Urine Clear (Clear); Bacteria,Urine Rare /hpf; Bilirubin,Urine Negative (Negative); Blood,Urine Negative (Negative); Color,Urine Light Yellow; Glucose,Urine (UA) 4+ (Negative); Ketones,Urine Negative (Negative); Leukocyte Esterase,Urine Trace (Negative); Mucus,Urine Rare /hpf; Nitrite,Urine Negative (Negative); PH, Urine 5.5 (5.0-8.0); Protein,Urine Negative (Negative); RBC,Urine 1 /hpf (0-5); Specific Gravity,Urine 1.007 (1.001-1.035); Squamous Epithelial Cell,Urine 2 /hpf (0-4); Urobilinogen,Urine <2.0 mg/dL (<2.0); WBC,Urine 3 /hpf (0-5)
[2018-08-18 03:10] LABS: Glucose,Whole Blood 127 mg/dL (75-99)
[2018-08-18] MEDS: INSULIN REGULAR 100 UNIT in SODIUM CHLORIDE 0.9% 100 ML IV SCH ×2 (03:10→15:40)
[2018-08-18 04:14] LABS: Glucose,Whole Blood 156 mg/dL (75-99)
[2018-08-18 05:18] LABS: Glucose,Whole Blood 127 mg/dL (75-99)
[2018-08-18 05:37] LABS: Basophils % (A) 0 %; Eosinophils # (A) 0.2 k/uL (0-0.7); Eosinophils % (A) 2 %; HCT 39.8 % (34.0-46.0); HGB 13.5 gm/dL (11.4-16.0); Lymphocytes # (A) 3.6 k/uL (1.0-4.8); Lymphocytes % (A) 31 %; MCH 28.5 pg (25.0-35.0); MCHC 33.9 g/dL (31.0-37.0); MCV 84.1 fL (80.0-100.0); Mean Platelet Volume 8.3; Monocytes # (A) 0.7 k/uL (0-1.0); Monocytes % (A) 6 %; Neutrophils % (A) 60 %; Platelet Count 314 k/uL (150-450); RBC 4.73 m/uL (3.80-5.40); RDW 13.3 % (11.5-15.5); WBC 11.6 k/uL (3.8-10.6)
[2018-08-18 05:58] LABS: ALT 34 U/L (9-52); AST 60 U/L (14-36); Albumin 3.4 g/dL (3.5-5.0); Alkaline Phosphatase 99 U/L (38-126); Anion Gap 6 mmol/L; Blood Urea Nitrogen 14 mg/dL (7-17); Calcium 9.1 mg/dL (8.4-10.2); Carbon Dioxide 21 mmol/L (22-30); Chloride 111 mmol/L (98-107); Cholesterol 282 mg/dL (<200); Glucose 120 mg/dL (74-99); HDL Cholesterol 26 mg/dL (40-60); LDL Cholesterol,Calculated 189 mg/dL (0-99); Magnesium 2.1 mg/dL (1.6-2.3); Phosphorus 3.1 mg/dL (2.5-4.5); Potassium 3.7 mmol/L (3.5-5.1); Sodium 138 mmol/L (137-145); Total Bilirubin 0.6 mg/dL (0.2-1.3); Total Protein 6.3 g/dL (6.3-8.2); Triglycerides 334 mg/dL (<150)
[2018-08-18 06:24] LABS: Glucose,Whole Blood 129 mg/dL (75-99)
[2018-08-18] MEDS ORDERED: Potassium Replacement Protocol 1 EACH MISC MISCELLANE PRN (06:49)
[2018-08-18] MEDS ORDERED: POTASSIUM CHLORIDE ER 20 MEQ TAB.ER PO SCH (07:00)
[2018-08-18 07:30] LABS: Glucose,Whole Blood 136 mg/dL (75-99)
[2018-08-18] MEDS: PANTOPRAZOLE 40 MG TABLET PO SCH (07:38)
[2018-08-18 08:04] LABS: Glucose,Whole Blood 138 mg/dL (75-99)
[2018-08-18 08:57] LABS: Glucose,Whole Blood 168 mg/dL (75-99)
[2018-08-18 10:10] LABS: Glucose,Whole Blood 216 mg/dL (75-99)
[2018-08-18 10:57] LABS: Glucose,Whole Blood 229 mg/dL (75-99)
[2018-08-18] MEDS ORDERED: INSULIN PUMP BASAL RATES 1 EACH MISC MISCELLANE PRN (11:21)
[2018-08-18] MEDS ORDERED: INSULIN ASPART 100 UNIT/ML 1 ML 10 ML VIAL SQ PRN (11:21)
[2018-08-18] MEDS ORDERED: INSULIN PUMP TARGET GLUCOSE 1 EACH MISC MISCELLANE PRN (11:21)
[2018-08-18] MEDS ORDERED: INSPUCOR MISCELLANE PRN (11:21)
[2018-08-18] MEDS ORDERED: INSULIN PUMP ACTIVE INSULIN 1 EACH MISC MISCELLANE PRN (11:21)
[2018-08-18 12:01] LABS: Glucose,Whole Blood 237 mg/dL (75-99)
[2018-08-18] MEDS: INSULIN PUMP MEAL BOLUS 1 UNIT MISC MISCELLANE SCH ×3 (12:20→20:49)
--- NOTE | 2018-08-18 13:39 | P.PN ---
Subjective Progress Note Date: 08/18/18 Principal diagnosis: Diabetic ketoacidosis Patient was seen and examined. No acute events overnight. Patient reports no abdominal pain. No nausea or vomiting. Patient reports returning back to baseline. She has her insulin pump with her, initially started 1 year ago with no complications. Objective - Vital Signs Vital signs: Vital Signs Temp 97.8 F 08/18/18 12:00 Pulse 77 08/18/18 12:00 Resp 12 08/18/18 12:00 BP 141/75 08/18/18 12:00 Pulse Ox 99 08/18/18 12:00 Intake & Output 08/17/18 08/18/18 08/18/18 18:59 06:59 18:59 Intake Total 9.525 1442.204 931.183 Output Total 1250 400 Balance 9.525 192.204 531.183 Weight 88.451 kg 88.45 kg 88.45 kg Intake: IV 1350 900 D5-0.45% NaCl with KCl 1350 900 20Meq/l 1,000 ml @ 150 mls/hr IV .[id number] [facility]ARA Rx# :[id number] Intake, IV Titration 9.525 92.204 31.183 Amount Insulin Regular 100 unit 9.525 92.204 31.183 In Sodium Chloride 0.9% 100 ml @ 0.1 UNITS/KG/HR 8.93 mls/hr IV .[id number] TARA Rx#:[id number] Output: Urine 1250 400 Other: Voiding Method Toilet # Voids 1 - Exam General: [non toxic], [no distress], [appears at stated age] Derm: [warm], [dry] Head: [atraumatic], [normocephalic], [symmetric] Eyes: [EOMI], [no lid lag], [anicteric sclera] Mouth: [no lip lesion], [mucus membranes moist] Cardiovascular: [S1S2 reg], [no murmur] Lungs: [CTA bilateral], [no rhonchi, no rales] , [no accessory muscle use] Abdominal: [soft], [ nontender to palpation], [no guarding], [no appreciable organomegaly] Ext: [no gross muscle atrophy], [no edema], [no contractures] Psych: [Alert], [oriented], [appropriate affect] - Labs CBC & Chem 7: 08/18/18 05:22 08/18/18 05:22 Labs: Abnormal Lab Results - Last 24 Hours (Table) 08/17/18 08/17/18 08/17/18 Range/Units 14:44 15:11 15:11 WBC 16.3 H (3.8-10.6) k/uL RBC 5.64 H (3.80-5.40) m/uL Hct 46.4 H (34.0-46.0) % Neutrophils # 13.2 H (1.3-7.7) k/uL VBG pCO2 (37-51) mmHg VBG HCO3 (24-28) mmol/L Sodium 134 L (137-145) mmol/L Chloride 95 L (98-107) mmol/L Carbon Dioxide 16 L (22-30) mmol/L Creatinine (0.52-1.04) mg/dL Glucose 444 H (74-99) mg/dL POC Glucose (mg/dL) (75-99) mg/dL Hemoglobin A1c (4.0-6.0) % Calcium 10.4 H (8.4-10.2) mg/dL AST (14-36) U/L Alkaline Phosphatase 162 H (38-126) U/L Total Protein 8.7 H (6.3-8.2) g/dL Albumin 5.1 H (3.5-5.0) g/dL Triglycerides (<150) mg/dL Cholesterol (<200) mg/dL LDL Cholesterol, Calc (0-99) mg/dL HDL Cholesterol (40-60) mg/dL Urine Protein 1+ H (Negative) Urine Glucose (UA) 4+ H (Negative) Urine Ketones 4+ H (Negative) Urine Blood Trace H (Negative) Ur Leukocyte Esterase (Negative) Urine Bacteria (None) /hpf Urine Mucus Rare H (None) /hpf 08/17/18 08/17/18 08/17/18 Range/Units 15:11 15:54 16:43 WBC (3.8-10.6) k/uL RBC (3.80-5.40) m/uL Hct (34.0-46.0) % Neutrophils # (1.3-7.7) k/uL VBG pCO2 30 L (37-51) mmHg VBG HCO3 15 L (24-28) mmol/L Sodium (137-145) mmol/L Chloride (98-107) mmol/L Carbon Dioxide (22-30) mmol/L Creatinine (0.52-1.04) mg/dL Glucose (74-99) mg/dL POC Glucose (mg/dL) 334 H (75-99) mg/dL Hemoglobin A1c 10.6 H (4.0-6.0) % Calcium (8.4-10.2) mg/dL AST (14-36) U/L Alkaline Phosphatase (38-126) U/L Total Protein (6.3-8.2) g/dL Albumin (3.5-5.0) g/dL Triglycerides (<150) mg/dL Cholesterol (<200) mg/dL LDL Cholesterol, Calc (0-99) mg/dL HDL Cholesterol (40-60) mg/dL Urine Protein (Negative) Urine Glucose (UA) (Negative) Urine Ketones (Negative) Urine Blood (Negative) Ur Leukocyte Esterase (Negative) Urine Bacteria (None) /hpf Urine Mucus (None) /hpf 08/17/18 08/17/18 08/17/18 Range/Units 17:05 18:16 19:03 WBC (3.8-10.6) k/uL RBC (3.80-5.40) m/uL Hct (34.0-46.0) % Neutrophils # (1.3-7.7) k/uL VBG pCO2 (37-51) mmHg VBG HCO3 (24-28) mmol/L Sodium (137-145) mmol/L Chloride (98-107) mmol/L Carbon Dioxide (22-30) mmol/L Creatinine (0.52-1.04) mg/dL Glucose (74-99) mg/dL POC Glucose (mg/dL) 320 H 279 H 299 H (75-99) mg/dL Hemoglobin A1c (4.0-6.0) % Calcium (8.4-10.2) mg/dL AST (14-36) U/L Alkaline Phosphatase (38-126) U/L Total Protein (6.3-8.2) g/dL Albumin (3.5-5.0) g/dL Triglycerides (<150) mg/dL Cholesterol (<200) mg/dL LDL Cholesterol, Calc (0-99) mg/dL HDL Cholesterol (40-60) mg/dL Urine Protein (Negative) Urine Glucose (UA) (Negative) Urine Ketones (Negative) Urine Blood (Negative) Ur Leukocyte Esterase (Negative) Urine Bacteria (None) /hpf Urine Mucus (None) /hpf 08/17/18 08/17/18 08/17/18 Range/Units 19:10 20:20 21:02 WBC (3.8-10.6) k/uL RBC (3.80-5.40) m/uL Hct (34.0-46.0) % Neutrophils # (1.3-7.7) k/uL VBG pCO2 (37-51) mmHg VBG HCO3 (24-28) mmol/L Sodium (137-145) mmol/L Chloride (98-107) mmol/L Carbon Dioxide 18 L (22-30) mmol/L Creatinine (0.52-1.04) mg/dL Glucose 274 H (74-99) mg/dL POC Glucose (mg/dL) 244 H 251 H (75-99) mg/dL Hemoglobin A1c (4.0-6.0) % Calcium (8.4-10.2) mg/dL AST (14-36) U/L Alkaline Phosphatase (38-126) U/L Total Protein (6.3-8.2) g/dL Albumin (3.5-5.0) g/dL Triglycerides (<150) mg/dL Cholesterol (<200) mg/dL LDL Cholesterol, Calc (0-99) mg/dL HDL Cholesterol (40-60) mg/dL Urine Protein (Negative) Urine Glucose (UA) (Negative) Urine Ketones (Negative) Urine Blood (Negative) Ur Leukocyte Esterase (Negative) Urine Bacteria (None) /hpf Urine Mucus (None) /hpf 08/17/18 08/17/18 08/17/18 Range/Units 21:52 22:43 23:18 WBC (3.8-10.6) k/uL RBC (3.80-5.40) m/uL Hct (34.0-46.0) % Neutrophils # (1.3-7.7) k/uL VBG pCO2 (37-51) mmHg VBG HCO3 (24-28) mmol/L Sodium 135 L (137-145) mmol/L Chloride 108 H (98-107) mmol/L Carbon Dioxide 18 L (22-30) mmol/L Creatinine 0.45 L (0.52-1.04) mg/dL Glucose 236 H (74-99) mg/dL POC Glucose (mg/dL) 249 H 227 H (75-99) mg/dL Hemoglobin A1c (4.0-6.0) % Calcium (8.4-10.2) mg/dL AST (14-36) U/L Alkaline Phosphatase (38-126) U/L Total Protein (6.3-8.2) g/dL Albumin (3.5-5.0) g/dL Triglycerides (<150) mg/dL Cholesterol (<200) mg/dL LDL Cholesterol, Calc (0-99) mg/dL HDL Cholesterol (40-60) mg/dL Urine Protein (Negative) Urine Glucose (UA) (Negative) Urine Ketones (Negative) Urine Blood (Negative) Ur Leukocyte Esterase (Negative) Urine Bacteria (None) /hpf Urine Mucus (None) /hpf 08/18/18 08/18/18 08/18/18 Range/Units 00:29 01:37 01:45 WBC (3.8-10.6) k/uL RBC (3.80-5.40) m/uL Hct (34.0-46.0) % Neutrophils # (1.3-7.7) k/uL VBG pCO2 (37-51) mmHg VBG HCO3 (24-28) mmol/L Sodium (137-145) mmol/L Chloride (98-107) mmol/L Carbon Dioxide (22-30) mmol/L Creatinine (0.52-1.04) mg/dL Glucose (74-99) mg/dL POC Glucose (mg/dL) 208 H 175 H (75-99) mg/dL Hemoglobin A1c (4.0-6.0) % Calcium (8.4-10.2) mg/dL AST (14-36) U/L Alkaline Phosphatase (38-126) U/L Total Protein (6.3-8.2) g/dL Albumin (3.5-5.0) g/dL Triglycerides (<150) mg/dL Cholesterol (<200) mg/dL LDL Cholesterol, Calc (0-99) mg/dL HDL Cholesterol (40-60) mg/dL Urine Protein (Negative) Urine Glucose (UA) 4+ H (Negative) Urine Ketones (Negative) Urine Blood (Negative) Ur Leukocyte Esterase Trace H (Negative) Urine Bacteria Rare H (None) /hpf Urine Mucus Rare H (None) /hpf 08/18/18 08/18/18 08/18/18 Range/Units 03:08 04:12 05:16 WBC (3.8-10.6) k/uL RBC (3.80-5.40) m/uL Hct (34.0-46.0) % Neutrophils # (1.3-7.7) k/uL VBG pCO2 (37-51) mmHg VBG HCO3 (24-28) mmol/L Sodium (137-145) mmol/L Chloride (98-107) mmol/L Carbon Dioxide (22-30) mmol/L Creatinine (0.52-1.04) mg/dL Glucose (74-99) mg/dL POC Glucose (mg/dL) 127 H 156 H 127 H (75-99) mg/dL Hemoglobin A1c (4.0-6.0) % Calcium (8.4-10.2) mg/dL AST (14-36) U/L Alkaline Phosphatase (38-126) U/L Total Protein (6.3-8.2) g/dL Albumin (3.5-5.0) g/dL Triglycerides (<150) mg/dL Cholesterol (<200) mg/dL LDL Cholesterol, Calc (0-99) mg/dL HDL Cholesterol (40-60) mg/dL Urine Protein (Negative) Urine Glucose (UA) (Negative) Urine Ketones (Negative) Urine Blood (Negative) Ur Leukocyte Esterase (Negative) Urine Bacteria (None) /hpf Urine Mucus (None) /hpf 08/18/18 08/18/18 08/18/18 Range/Units 05:22 05:22 06:23 WBC 11.6 H (3.8-10.6) k/uL RBC (3.80-5.40) m/uL Hct (34.0-46.0) % Neutrophils # (1.3-7.7) k/uL VBG pCO2 (37-51) mmHg VBG HCO3 (24-28) mmol/L Sodium (137-145) mmol/L Chloride 111 H (98-107) mmol/L Carbon Dioxide 21 L (22-30) mmol/L Creatinine (0.52-1.04) mg/dL Glucose 120 H (74-99) mg/dL POC Glucose (mg/dL) 129 H (75-99) mg/dL Hemoglobin A1c (4.0-6.0) % Calcium (8.4-10.2) mg/dL AST 60 H (14-36) U/L Alkaline Phosphatase (38-126) U/L Total Protein (6.3-8.2) g/dL Albumin 3.4 L (3.5-5.0) g/dL Triglycerides 334 H (<150) mg/dL Cholesterol 282 H (<200) mg/dL LDL Cholesterol, Calc 189 H (0-99) mg/dL HDL Cholesterol 26 L (40-60) mg/dL Urine Protein (Negative) Urine Glucose (UA) (Negative) Urine Ketones (Negative) Urine Blood (Negative) Ur Leukocyte Esterase (Negative) Urine Bacteria (None) /hpf Urine Mucus (None) /hpf 08/18/18 08/18/18 08/18/18 Range/Units 07:28 08:03 08:55 WBC (3.8-10.6) k/uL RBC (3.80-5.40) m/uL Hct (34.0-46.0) % Neutrophils # (1.3-7.7) k/uL VBG pCO2 (37-51) mmHg VBG HCO3 (24-28) mmol/L Sodium (137-145) mmol/L Chloride (98-107) mmol/L Carbon Dioxide (22-30) mmol/L Creatinine (0.52-1.04) mg/dL Glucose (74-99) mg/dL POC Glucose (mg/dL) 136 H 138 H 168 H (75-99) mg/dL Hemoglobin A1c (4.0-6.0) % Calcium (8.4-10.2) mg/dL AST (14-36) U/L Alkaline Phosphatase (38-126) U/L Total Protein (6.3-8.2) g/dL Albumin (3.5-5.0) g/dL Triglycerides (<150) mg/dL Cholesterol (<200) mg/dL LDL Cholesterol, Calc (0-99) mg/dL HDL Cholesterol (40-60) mg/dL Urine Protein (Negative) Urine Glucose (UA) (Negative) Urine Ketones (Negative) Urine Blood (Negative) Ur Leukocyte Esterase (Negative) Urine Bacteria (None) /hpf Urine Mucus (None) /hpf 08/18/18 08/18/18 08/18/18 Range/Units 10:08 10:56 11:59 WBC (3.8-10.6) k/uL RBC (3.80-5.40) m/uL Hct (34.0-46.0) % Neutrophils # (1.3-7.7) k/uL VBG pCO2 (37-51) mmHg VBG HCO3 (24-28) mmol/L Sodium (137-145) mmol/L Chloride (98-107) mmol/L Carbon Dioxide (22-30) mmol/L Creatinine (0.52-1.04) mg/dL Glucose (74-99) mg/dL POC Glucose (mg/dL) 216 H 229 H 237 H (75-99) mg/dL Hemoglobin A1c (4.0-6.0) % Calcium (8.4-10.2) mg/dL AST (14-36) U/L Alkaline Phosphatase (38-126) U/L Total Protein (6.3-8.2) g/dL Albumin (3.5-5.0) g/dL Triglycerides (<150) mg/dL Cholesterol (<200) mg/dL LDL Cholesterol, Calc (0-99) mg/dL HDL Cholesterol (40-60) mg/dL Urine Protein (Negative) Urine Glucose (UA) (Negative) Urine Ketones (Negative) Urine Blood (Negative) Ur Leukocyte Esterase (Negative) Urine Bacteria (None) /hpf Urine Mucus (None) /hpf Microbiology - Last 24 Hours (Table) 08/18/18 01:45 Urine Culture - Preliminary Urine,Voided Assessment and Plan Assessment: Assessment and Plan 1. DKA: Resoving. Likely due to steroid use in the outpatient setting. K 3.7 ( normal), HCO3 21 (decreased), no anion gap. BG 138-237. A1c 10.6. Transitioned off the insulin drip and started on home insulin pump this morning. Continue D5 1/2 NS 20 Meq KCl at 50 cc/h. Transfer out of ICU. Accuchecks. 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 Sees [employer] outPT. FU BMP 2. Hyperlipidemia: Lipid panel shows T. Chol 282, LDL 189 and HDL 26. 10 year ASCVD risk ~ 11%. Will need ASA 81 mg PO QD and Lipitor 40 mg PO QHS on discharge. 3. Hypertension: BP 141/75. Monitor vitals, start medication as necessary. 4. R. elbow cellultis: Stable, Continue Keflex 250 mg PO TID. 5. DVT/GI Prophylaxis: SCD boots. Protonix 40 mg PO QAM.
--- NOTE | 2018-08-18 14:59 | P.CNPUL ---
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 Patient has insulin pump, she follows with Dr. Farhana Zelaya. No previous episodes of DKA. Patient was recently treated at the [facility] and for the right elbow cellulitis with clindamycin in the emergency department to which she developed a reaction, and was given steroids upon discharge. Since then her glucose readings have been elevated, they've been running in the 400s for the past 3 days. Her right elbow cellulitis is almost completely resolved, she denies any fever or chills, denies any shortness of breath or chest pain, denies any back pain or abdominal pain. No vomiting or diarrhea. Labs showed leukocytosis with a CBC of 16.3, hemoglobin of 15.8, sodium of 135, potassium is 4.3, CO2 was 16, anion gap was elevated at 23, BUN of 16, creatinine 0.66, glucose was 444, hemoglobin A1c was 10.6, calcium was 10.4, ALT and AST were 27 and 15 respectively, alkaline phosphatase was 162, urinalysis was positive for 4+ glucose, 4+ ketones, serum acetone was positive. Venous blood gas showed pH of 7.33, pCO2 of 30, and bicarb of 15. Patient has been afebrile, hemodynamically stable, slightly tachycardic on admission, which has improved. Patient denies any respiratory difficulty. She was admitted to the intensive care unit, received 2 L of 0.9 normal saline and fluid boluses. She has been on insulin infusion per DKA protocol, IV fluids of D5.45 with 20 of KCL is infusing at a rate of 50 ML per hour currently. Patient was started on oral Keflex. She is awake and alert, in no acute distress, she is voiding, she is nonoliguric. This morning's labs have been reviewed, WBCs 11.6, hemoglobin is 13.5, sodium is 138, potassium is 3.7, chloride is 111, CO2 is up to 21, anion gap has closed, and is currently at 6, BUN is 14, creatinine 0.56. She remains hemodynamically stable, room air pulse ox is 99%. She will be started on an oral diet. No nausea, no vomiting. Patient's insulin pump will be restarted, and insulin drip will be discontinued. Review of Systems All systems: negative Constitutional: Denies chills, Denies fever Eyes: denies blurred vision, denies pain Ears, nose, mouth and throat: Denies headache, Denies sore throat Cardiovascular: Denies chest pain, Denies shortness of breath Respiratory: Denies cough Gastrointestinal: Denies abdominal pain, Denies diarrhea, Denies nausea, Denies vomiting Genitourinary: Denies dysuria, Denies hematuria Musculoskeletal: Denies myalgias Integumentary: Denies pruritus, Denies rash Neurological: Denies numbness, Denies weakness Psychiatric: Denies anxiety, Denies depression Endocrine: Reports recent glucocorticoid use, Denies fatigue, Denies weight change Past Medical History Past Medical History: Diabetes Mellitus, GERD/Reflux, Hyperlipidemia, Hypertension Additional Past Medical History / Comment(s): 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 Date of last positivie culture/infection: 10/2017 MDRO Source:: urine Past Surgical History: Hysterectomy, Tubal Ligation Additional Past Surgical History / Comment(s): E-P study , ACL reconstruction, x7 surgerys on L-knee Past Anesthesia/Blood Transfusion Reactions: No Reported Reaction Smoking Status: Never smoker - Past Family History Mother Family Medical History: Cancer Father Family Medical History: Diabetes Mellitus, Hypertension, Liver Disease, Renal Disease Medications and Allergies Home Medications Medication Instructions Recorded Confirmed Type Cephalexin [Keflex] 250 mg PO Q8HR 08/17/18 08/17/18 History INSULIN LISPRO (For Pump) [humaLOG 0.01 units SQ-PUMP CONTINUOUS 08/17/18 History (For Pump)] Metoclopramide [Reglan] 10 mg PO ACHS 08/17/18 08/17/18 History predniSONE 60 mg PO DAILY 08/17/18 08/17/18 History Allergies Allergy/AdvReac Type Severity Reaction Status Date / Time clindamycin Allergy Anaphylaxis Verified 08/17/18 14:33 Physical Exam Vitals: Vital Signs Temp Pulse Resp BP Pulse Ox 08/18/18 12:00 97.8 F 77 12 141/75 99 08/18/18 11:00 64 12 132/70 99 08/18/18 10:00 72 14 139/65 98 08/18/18 09:00 63 18 134/69 98 08/18/18 08:00 97.7 F 63 12 130/77 99 08/18/18 07:00 63 14 122/78 96 08/18/18 06:00 66 16 116/76 97 08/18/18 05:00 53 L 16 118/78 98 08/18/18 04:00 98.4 F 63 14 115/78 96 08/18/18 03:00 69 24 118/80 95 08/18/18 02:00 61 16 116/78 97 08/18/18 01:00 69 15 118/82 95 08/18/18 00:00 71 14 124/84 95 08/17/18 23:00 73 16 118/68 97 08/17/18 22:00 81 16 119/78 96 08/17/18 21:02 98.4 F 88 14 127/82 98 08/17/18 20:41 97.4 F L 74 18 145/73 97 08/17/18 18:20 89 18 155/83 97 08/17/18 17:07 98.1 F 85 18 139/86 97 08/17/18 16:07 98.3 F 89 18 136/86 97 Intake and Output 08/17/18 08/18/18 08/18/18 22:59 06:59 14:59 Intake Total 372.114 2141.675 931.183 Output Total 1250 400 Balance 179.054 22.675 531.183 Intake: IV 150 1200 900 D5-0.45% NaCl with KCl 150 1200 900 20Meq/l 1,000 ml @ 150 mls/hr IV .[id number] TARA Rx# :[id number] Intake, IV Titration 29.054 72.675 31.183 Amount Insulin Regular 100 unit 29.054 72.675 31.183 In Sodium Chloride 0.9% 100 ml @ 0.1 UNITS/KG/HR 8.93 mls/hr IV .[id number] TARA Rx#:[id number] Output: Urine 1250 400 Other: Voiding Method Toilet # Voids 1 1 Weight 88.45 kg 88.45 kg 88.45 kg GENERAL EXAM: Alert, active, comfortable in no apparent distress. HEAD: Normocephalic/atraumatic. EYES: Normal reaction of pupils, equal size. Conjunctiva pink, sclera white. NOSE: Clear with pink turbinates. THROAT: No erythema or exudates. NECK: No masses, no JVD, no thyroid enlargement, no adenopathy. CHEST: No chest wall deformity. Symmetrical expansion. LUNGS: Equal air entry with no crackles, wheeze, rhonchi or dullness. CVS: Regular rate and rhythm, normal S1 and S2, no gallops, no murmurs, no rubs ABDOMEN: Soft, nontender. No hepatosplenomegaly, normal bowel sounds, no guarding or rigidity. EXTREMITIES: No clubbing, no edema, no cyanosis, 2+ pulses and upper and lower extremities. MUSCULOSKELETAL: Muscle strength and tone normal. SPINE: No scoliosis or deformity SKIN: No rashes CENTRAL NERVOUS SYSTEM: Alert and oriented -3. No focal deficits, tone is normal in all 4 extremities. PSYCHIATRIC: Alert and oriented -3. Appropriate affect. Intact judgment and insight. Results - Laboratory Findings CBC and BMP: 08/18/18 05:22 08/18/18 05:22 Abnormal lab findings: Abnormal Labs 08/17/18 08/17/18 08/17/18 14:44 15:11 15:11 WBC 16.3 H RBC 5.64 H Hct 46.4 H Neutrophils # 13.2 H VBG pCO2 VBG HCO3 Sodium 134 L Chloride 95 L Carbon Dioxide 16 L Creatinine Glucose 444 H POC Glucose (mg/dL) Hemoglobin A1c Calcium 10.4 H AST Alkaline Phosphatase 162 H Total Protein 8.7 H Albumin 5.1 H Triglycerides Cholesterol LDL Cholesterol, Calc HDL Cholesterol Urine Protein 1+ H Urine Glucose (UA) 4+ H Urine Ketones 4+ H Urine Blood Trace H Ur Leukocyte Esterase Urine Bacteria Urine Mucus Rare H 08/17/18 08/17/18 08/17/18 15:11 15:54 16:43 WBC RBC Hct Neutrophils # VBG pCO2 30 L VBG HCO3 15 L Sodium Chloride Carbon Dioxide Creatinine Glucose POC Glucose (mg/dL) 334 H Hemoglobin A1c 10.6 H Calcium AST Alkaline Phosphatase Total Protein Albumin Triglycerides Cholesterol LDL Cholesterol, Calc HDL Cholesterol Urine Protein Urine Glucose (UA) Urine Ketones Urine Blood Ur Leukocyte Esterase Urine Bacteria Urine Mucus 08/17/18 08/17/18 08/17/18 17:05 18:16 19:03 WBC RBC Hct Neutrophils # VBG pCO2 VBG HCO3 Sodium Chloride Carbon Dioxide Creatinine Glucose POC Glucose (mg/dL) 320 H 279 H 299 H Hemoglobin A1c Calcium AST Alkaline Phosphatase Total Protein Albumin Triglycerides Cholesterol LDL Cholesterol, Calc HDL Cholesterol Urine Protein Urine Glucose (UA) Urine Ketones Urine Blood Ur Leukocyte Esterase Urine Bacteria Urine Mucus 08/17/18 08/17/18 08/17/18 19:10 20:20 21:02 WBC RBC Hct Neutrophils # VBG pCO2 VBG HCO3 Sodium Chloride Carbon Dioxide 18 L Creatinine Glucose 274 H POC Glucose (mg/dL) 244 H 251 H Hemoglobin A1c Calcium AST Alkaline Phosphatase Total Protein Albumin Triglycerides Cholesterol LDL Cholesterol, Calc HDL Cholesterol Urine Protein Urine Glucose (UA) Urine Ketones Urine Blood Ur Leukocyte Esterase Urine Bacteria Urine Mucus 08/17/18 08/17/18 08/17/18 21:52 22:43 23:18 WBC RBC Hct Neutrophils # VBG pCO2 VBG HCO3 Sodium 135 L Chloride 108 H Carbon Dioxide 18 L Creatinine 0.45 L Glucose 236 H POC Glucose (mg/dL) 249 H 227 H Hemoglobin A1c Calcium AST Alkaline Phosphatase Total Protein Albumin Triglycerides Cholesterol LDL Cholesterol, Calc HDL Cholesterol Urine Protein Urine Glucose (UA) Urine Ketones Urine Blood Ur Leukocyte Esterase Urine Bacteria Urine Mucus 08/18/18 08/18/18 08/18/18 00:29 01:37 01:45 WBC RBC Hct Neutrophils # VBG pCO2 VBG HCO3 Sodium Chloride Carbon Dioxide Creatinine Glucose POC Glucose (mg/dL) 208 H 175 H Hemoglobin A1c Calcium AST Alkaline Phosphatase Total Protein Albumin Triglycerides Cholesterol LDL Cholesterol, Calc HDL Cholesterol Urine Protein Urine Glucose (UA) 4+ H Urine Ketones Urine Blood Ur Leukocyte Esterase Trace H Urine Bacteria Rare H Urine Mucus Rare H 08/18/18 08/18/18 08/18/18 03:08 04:12 05:16 WBC RBC Hct Neutrophils # VBG pCO2 VBG HCO3 Sodium Chloride Carbon Dioxide Creatinine Glucose POC Glucose (mg/dL) 127 H 156 H 127 H Hemoglobin A1c Calcium AST Alkaline Phosphatase Total Protein Albumin Triglycerides Cholesterol LDL Cholesterol, Calc HDL Cholesterol Urine Protein Urine Glucose (UA) Urine Ketones Urine Blood Ur Leukocyte Esterase Urine Bacteria Urine Mucus 08/18/18 08/18/1818 05:22 05:22 06:23 WBC 11.6 H RBC Hct Neutrophils # VBG pCO2 VBG HCO3 Sodium Chloride 111 H Carbon Dioxide 21 L Creatinine Glucose 120 H POC Glucose (mg/dL) 129 H Hemoglobin A1c Calcium AST 60 H Alkaline Phosphatase Total Protein Albumin 3.4 L Triglycerides 334 H Cholesterol 282 H LDL Cholesterol, Calc 189 H HDL Cholesterol 26 L Urine Protein Urine Glucose (UA) Urine Ketones Urine Blood Ur Leukocyte Esterase Urine Bacteria Urine Mucus 08/18/18 08/18/18 08/18/18 07:28 08:03 08:55 WBC RBC Hct Neutrophils # VBG pCO2 VBG HCO3 Sodium Chloride Carbon Dioxide Creatinine Glucose POC Glucose (mg/dL) 136 H 138 H 168 H Hemoglobin A1c Calcium AST Alkaline Phosphatase Total Protein Albumin Triglycerides Cholesterol LDL Cholesterol, Calc HDL Cholesterol Urine Protein Urine Glucose (UA) Urine Ketones Urine Blood Ur Leukocyte Esterase Urine Bacteria Urine Mucus 08/18/18 08/18/18 08/18/18 10:08 10:56 11:59 WBC RBC Hct Neutrophils # VBG pCO2 VBG HCO3 Sodium Chloride Carbon Dioxide Creatinine Glucose POC Glucose (mg/dL) 216 H 229 H 237 H Hemoglobin A1c Calcium AST Alkaline Phosphatase Total Protein Albumin Triglycerides Cholesterol LDL Cholesterol, Calc HDL Cholesterol Urine Protein Urine Glucose (UA) Urine Ketones Urine Blood Ur Leukocyte Esterase Urine Bacteria Urine Mucus - Diagnostic Findings Additional studies: EKG reviewed Assessment and Plan Plan: Assessment: #1. Acute diabetic ketoacidosis, likely secondary to recent cellulitis of the right elbow, and steroid use #2. Anion gap metabolic acidosis secondary to above, resolved #3. Leukocytosis #4. Right elbow cellulitis, improving #5. Diabetes mellitus type 2 #6. Hypertension, hyperlipidemia #7. Obesity #8. Wcpxf-Gyjbzfgtl-Zyfyf syndrome, with previous EP study and ablation. Diagnosed at age 35 after having recurrent syncopal episodes #9. GERD/reflux #10. History of VRE UTI Plan: Patient has been adequately fluid resuscitated, her anion gap has closed, insulin drip is going to be transitioned to insulin pump. Electrolytes and renal profile are essentially unremarkable. Vital signs remain stable, patient will be started on oral diet. No acute complaints. From pulmonary/critical care standpoint patient can be transferred to the medical surgical floor. I performed a history & physical examination of the patient and discussed their management with my nurse practitioner, Aleta Trujillo. I reviewed the nurse practitioner's note and agree with the documented findings and plan of care. Lung sounds are clear. The findings and the impression was discussed with the patient. I attest to the documentation by the nurse practitioner. Time with Patient: Greater than 30
[2018-08-18 17:44] LABS: Anion Gap 10 mmol/L; Blood Urea Nitrogen 13 mg/dL (7-17); Calcium 8.8 mg/dL (8.4-10.2); Carbon Dioxide 17 mmol/L (22-30); Chloride 107 mmol/L (98-107); Glucose 318 mg/dL (74-99); Potassium 4.2 mmol/L (3.5-5.1); Sodium 134 mmol/L (137-145)
[2018-08-18 18:04] LABS: Glucose,Whole Blood 284 mg/dL (75-99)
[2018-08-18 20:33] LABS: Glucose,Whole Blood 291 mg/dL (75-99)
[2018-08-18 23:06] VITALS: RESP 18
[2018-08-19] MEDS: CEPHALEXIN 250 MG CAP PO SCH ×2 (01:36→08:01)
[2018-08-19 05:55] VITALS: BP 119/75; PULSE 69; TEMP 96.7
[2018-08-19 06:57] LABS: Glucose,Whole Blood 231 mg/dL (75-99)
[2018-08-19] MEDS: INSULIN PUMP MEAL BOLUS 1 UNIT MISC MISCELLANE SCH ×2 (08:01→13:08)
[2018-08-19] MEDS: PANTOPRAZOLE 40 MG TABLET PO SCH (08:01)
--- NOTE | 2018-08-19 09:00 | P.PN ---
Subjective Progress Note Date: 08/19/18 Principal diagnosis: DKA Patient was seen and examined. No acute events overnight. Patient is tolerating oral intake well. She denies any abdominal pain, shortness of breath , chest pain, palpitations. No changes in urination or bowel habits. Patient requesting to go home. Objective - Vital Signs Vital signs: Vital Signs Temp 96.7 F L 08/19/18 05:55 Pulse 69 08/19/18 05:55 Resp 18 08/19/18 05:55 BP 119/75 08/19/18 05:55 Pulse Ox 98 08/19/18 05:55 Intake & Output 08/18/18 08/19/18 08/19/18 18:59 06:59 18:59 Intake Total 931.183 Output Total 400 Balance 531.183 Weight 88.45 kg Intake: IV 900 D5-0.45% NaCl with KCl 900 20Meq/l 1,000 ml @ 150 mls/hr IV .Q6H40M TARA Rx# :[id number] Intake, IV Titration 31.183 Amount Insulin Regular 100 unit 31.183 In Sodium Chloride 0.9% 100 ml @ 0.1 UNITS/KG/HR 8.93 mls/hr IV .[id number] TARA Rx#:[id number] Output: Urine 400 Other: Voiding Method Toilet # Voids 0 2 # Bowel Movements 0 - Exam General: [non toxic], [no distress], [appears at stated age] Derm: [warm], [dry] Head: [atraumatic], [normocephalic], [symmetric] Eyes: [EOMI], [no lid lag], [anicteric sclera] Mouth: [no lip lesion], [mucus membranes moist] Cardiovascular: [S1S2 reg], [no murmur] Lungs: [CTA bilateral], [no rhonchi, no rales] , [no accessory muscle use] Abdominal: [soft], [ nontender to palpation], [no guarding], [no appreciable organomegaly] Ext: [no gross muscle atrophy], [no edema], [no contractures] Psych: [Alert], [oriented], [appropriate affect] - Labs CBC & Chem 7: 08/18/18 05:22 08/18/18 16:53 Labs: Abnormal Lab Results - Last 24 Hours (Table) 08/18/18 08/18/18 08/18/18 Range/Units 08:55 10:08 10:56 Sodium (137-145) mmol/L Carbon Dioxide (22-30) mmol/L Glucose (74-99) mg/dL POC Glucose (mg/dL) 168 H 216 H 229 H (75-99) mg/dL 08/18/18 08/18/18 08/18/18 Range/Units 11:59 16:53 18:02 Sodium 134 L (137-145) mmol/L Carbon Dioxide 17 L (22-30) mmol/L Glucose 318 H (74-99) mg/dL POC Glucose (mg/dL) 237 H 284 H (75-99) mg/dL 08/18/18 08/19/18 Range/Units 20:31 06:54 Sodium (137-145) mmol/L Carbon Dioxide (22-30) mmol/L Glucose (74-99) mg/dL POC Glucose (mg/dL) 291 H 231 H (75-99) mg/dL Microbiology - Last 24 Hours (Table) 08/18/18 01:45 Urine Culture - Preliminary Urine,Voided Assessment and Plan Assessment: Assessment and Plan 1. DKA: Resolved. Likely due to steroid use in the outpatient setting. K 4.2 ( normal), HCO3 17 (decreased), no anion gap. BG 129-284. A1c 10.6. Currently off the drip on the insulin pump (set up by Pharmacy). Will DC IVF as patient tolerating diet well. Accuchecks Q1H. Hypoglycemic precautions. 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 FU BMP 2. Hyperlipidemia: Lipid panel shows T. Chol 282, LDL 189 and HDL 26. 10 year ASCVD risk ~ 11%. Will need ASA 81 mg PO QD and Lipitor 40 mg PO QHS on discharge. 3. Hypertension: BP 119/75. Monitor vitals, start medication as necessary. 4. R. elbow cellultis: Stable, Continue Keflex 250 mg PO TID. 5. DVT/GI Prophylaxis: SCD boots. Protonix 40 mg PO QAM. DKA resolving. We are waiting on today's BMP. Likely discharge today.
[2018-08-19] MEDS: D5-0.45% NACL WITH KCL 20MEQ/L 1,000 ML IV SCH (10:51)
[2018-08-19 11:16] LABS: Basophils % (A) 0 %; Eosinophils # (A) 0.4 k/uL (0-0.7); Eosinophils % (A) 5 %; HCT 40.6 % (34.0-46.0); HGB 13.4 gm/dL (11.4-16.0); Lymphocytes # (A) 2.9 k/uL (1.0-4.8); Lymphocytes % (A) 35 %; MCH 27.6 pg (25.0-35.0); MCHC 33.1 g/dL (31.0-37.0); MCV 83.5 fL (80.0-100.0); Mean Platelet Volume 7.9; Monocytes # (A) 0.4 k/uL (0-1.0); Monocytes % (A) 5 %; Neutrophils # (A) 4.4 k/uL (1.3-7.7); Neutrophils % (A) 53 %; Platelet Count 295 k/uL (150-450); RBC 4.86 m/uL (3.80-5.40); RDW 13.5 % (11.5-15.5); WBC 8.3 k/uL (3.8-10.6)
[2018-08-19 11:25] LABS: Anion Gap 9 mmol/L; Blood Urea Nitrogen 12 mg/dL (7-17); Carbon Dioxide 24 mmol/L (22-30); Chloride 105 mmol/L (98-107); Glucose 184 mg/dL (74-99); Potassium 4.1 mmol/L (3.5-5.1); Sodium 138 mmol/L (137-145)
[2018-08-19 11:49] LABS: Glucose,Whole Blood 139 mg/dL (75-99)
[2018-08-19 14:14] LABS: Magnesium 1.7 mg/dL (1.6-2.3); Phosphorus 3.5 mg/dL (2.5-4.5)
== END 2018-08-19 14:03 | disposition home or self-care (01) | DRG 638 ==
LOC: EC 12:44 → 6SEL 15:42 → 6ICU 17:38 → 4MS4W 08-18 13:48
PROVIDERS: ADMIT Internal Medicine; ATTEND Internal Medicine
DX: E11.10 Type 2 diabetes mellitus with ketoacidosis without coma (principal); L03.113 Cellulitis of right upper limb; T38.0X5A Adverse effect of glucocorticoids and synthetic analogues, initial encounter; I10 Essential (primary) hypertension; E78.5 Hyperlipidemia, unspecified; I45.6 Pre-excitation syndrome; K21.9 Gastro-esophageal reflux disease without esophagitis; E66.9 Obesity, unspecified; Z68.36 Body mass index [BMI] 36.0-36.9, adult; Z71.3 Dietary counseling and surveillance; Z79.4 Long term (current) use of insulin; Z79.82 Long term (current) use of aspirin; Z88.1 Allergy status to other antibiotic agents; Z86.19 Personal history of other infectious and parasitic diseases; Z90.710 Acquired absence of both cervix and uterus; Z87.440 Personal history of urinary (tract) infections; Z98.51 Tubal ligation status; Z83.2 Family history of diseases of the blood and blood-forming organs and certain disorders involving the immune mechanism; Z80.9 Family history of malignant neoplasm, unspecified; Z96.41 Presence of insulin pump (external) (internal); Z83.3 Family history of diabetes mellitus; Z82.49 Family history of ischemic heart disease and other diseases of the circulatory system; Z84.1 Family history of disorders of kidney and ureter; Z83.79 Family history of other diseases of the digestive system
CPT/HCPCS: 36415; 80048; 80051; 80053; 80061; 81001; 82009; 82565; 82803; 82947; 83036; 83735; 84100; 84520; 85025; 87086; 93005; 96361; 96372; 96374; 99285

== ENCOUNTER → 2018-08-27 | Outpatient (CLI) | payer MEDICAID, OTHER ==
[2018-08-27 07:42] LABS: Basophils # (A) 0.1 k/uL (0-0.2); Basophils % (A) 1 %; Eosinophils # (A) 0.4 k/uL (0-0.7); Eosinophils % (A) 5 %; HCT 43.3 % (34.0-46.0); HGB 14.2 gm/dL (11.4-16.0); Lymphocytes # (A) 3.3 k/uL (1.0-4.8); Lymphocytes % (A) 34 %; MCH 28.3 pg (25.0-35.0); MCHC 32.8 g/dL (31.0-37.0); MCV 86.2 fL (80.0-100.0); Monocytes # (A) 0.6 k/uL (0-1.0); Monocytes % (A) 6 %; Neutrophils # (A) 5.1 k/uL (1.3-7.7); Neutrophils % (A) 53 %; Platelet Count 330 k/uL (150-450); RBC 5.03 m/uL (3.80-5.40); RDW 13.8 % (11.5-15.5); WBC 9.6 k/uL (3.8-10.6)
[2018-08-27 08:10] LABS: Potassium 4.5 mmol/L (3.5-5.1)
== END | disposition home or self-care (01) ==
LOC: LABPAT 07:22
PROVIDERS: ATTEND Orthopaedic Surgery
DX: Z01.812 Encounter for preprocedural laboratory examination (principal); M75.41 Impingement syndrome of right shoulder
CPT/HCPCS: 36415; 80051; 85025

== ENCOUNTER 2018-09-09 08:09 | Day surgery (SDC) | payer MEDICAID, OTHER ==
[2018-08-31 11:36] VITALS: BMI 35.9
--- NOTE | 2018-09-08 13:52 | HP ---
HISTORY AND PHYSICAL DATE OF SURGERY: 09/09/2018. Angel Birmingham, a 38-year-old patient seen with progressive right shoulder pain. We discussed treatment options. She elected to proceed with arthroscopy. Consent regarding the procedure was obtained. PAST MEDICAL HISTORY: Insulin-dependent diabetes. PAST SURGICAL HISTORY: Left knee arthroscopy, right knee arthroscopy. DAILY MEDICATIONS: Humalog. ALLERGIES: None. SOCIAL HISTORY: Patient denies tobacco use. PHYSICAL EVALUATION RIGHT SHOULDER: Flexion is 110 degrees, abduction is 90 degrees, external rotation is 40 degrees with weakness, tenderness along the anterior lateral acromion rotator cuff insertion. Impingement positive 70 degrees, drop-arm sign positive. Distal neurovascular exam intact. RADIOGRAPHS RIGHT SHOULDER: Type 2 anterior acromion. MRI right shoulder revealed rotator cuff tear and downward sloping of the acromion. IMPRESSION: Right shoulder impingement with rotator cuff tear. PLAN: Right shoulder arthroscopy with subacromial decompression, probable arthroscopic rotator cuff repair and debridement. MMODL / IJN: [id number] /
[~2018-09-09 08:09] MED LIST: HYDROmorphone 1 MG/ML 1 ML SYRINGE IVP PRN; LACTATED RINGERS 1,000 ML IV SCH; ceFAZolin IN SWFI 2 GM/20 ML SYRINGE IVP ONE
[2018-09-09] MEDS ORDERED: LIDOCAINE 1% 20 ML VIAL (10MG/ML) FOR IV START INTRADERMA ONE (08:47)
[2018-09-09] MEDS ORDERED: MIDAZOLAM 2 MG/2 ML VIAL IV ONE (08:59)
[2018-09-09 09:02] LABS: Glucose,Whole Blood 241 mg/dL (75-99)
[2018-09-09] MEDS ORDERED: ONDANSETRON 4 MG/2 ML VIAL IVP ONE (09:30)
[2018-09-09] MEDS ORDERED: DEXAMETHASONE SOD PHOSPHATE 10 MG/ML 1 ML VIAL IV ONE (09:30)
--- NOTE | 2018-09-09 10:09 | P.ONQ ---
Anesthesiology Proc Note - PNB - Peripheral Nerve Block Performed Right Interscalene Single Time Out Performed: Yes Procedure Start Time: 08:51 Procedure Stop Time: 09:03 Indication: Acute Post-Operative Pain, Analgesia, Dx/Pain Location, Requested by physician Sedation Type: Sedate with meaningful contact maintained Preparation: Sterile Prep Position: Supine Catheter: None Needle Types: [email or web address] Needle Size: 50mm (2") Needle Gauge: 20 Technique: Ultrasound Injectate: 0.5% Ropivacaine (see comment for volume) Blood Aspirated: No Pain Paresthesia on Injection Noted: No Resistance on Injection: Normal Events: Uneventful and Well Tolerated
[2018-09-09] MEDS ORDERED: PROPOFOL 10 MG/ML 20 ML VIAL IV ONE (10:26)
[2018-09-09] MEDS ORDERED: ROPIVACAINE 5 MG/ML 30 ML VIAL ONE (10:26)
[2018-09-09] MEDS ORDERED: LIDOCAINE 1% INJ 10MG/ML (20 ML MDV) ONE (10:26)
[2018-09-09] MEDS ORDERED: fentaNYL (PF) 50 MCG/ML 2 ML AMP ONE (10:26)
[2018-09-09] MEDS ORDERED: MIDAZOLAM 2 MG/2 ML VIAL ONE (10:26)
[2018-09-09] MEDS ORDERED: ROCURONIUM BROMIDE 10 MG/ML 10 ML VIAL IV ONE (10:26)
[2018-09-09] MEDS ORDERED: LACTATED RINGERS 1,000 ML IV ONE (11:07)
--- NOTE | 2018-09-09 11:58 | P.OP ---
Date of Procedure: 09/09/18 Preoperative Diagnosis: Right shoulder impingement Postoperative Diagnosis: 1. Right shoulder rotator cuff tear 2. Right shoulder impingement 3. Right shoulder partial long head biceps tendon tear Procedure(s) Performed: 1. Right shoulder arthroscopic rotator cuff repair 2. Right shoulder arthroscopic subacromial decompression 3. Right shoulder arthroscopic biceps tenotomy Implants: 14.75 Arthrex swivel lock anchor Anesthesia: GETA, regional (Interscalene block) Surgeon: Mook Melgoza [employer] Engraver Hand #1: Marshal Krishna Estimated Blood Loss (ml): 8 Pathology: none sent Condition: stable Disposition: PACU Indications for Procedure: 38-year-old patient seen with progressive right shoulder pain. After having treatment options discussed, she elected to proceed with arthroscopy. Operative Findings: see description of procedure Description of Procedure: Patient underwent an interscalene block by department of anesthesia for postoperative pain control. The patient was then taken to the operative suite. The patient underwent a general anesthetic by the department of anesthesia. The patient was placed into a lateral position and secured. There was appropriate padding of the bony prominence. Right shoulder was then prepped and draped in normal sterile orthopedic fashion. We placed the extremity in 10 pounds of longitudinal traction. A posterior incision was now made for a posterior working portal site. The trocar and cannula were inserted into the glenohumeral joint. Arthroscopy was initiated. Spinal needle was now inserted anteriorly, to ascertain the anterior working portal site. An incision was now made in that area, a trocar was inserted followed by a probe. There was some tearing and hyperemia long head biceps tendon. The labrum was stable. The glenohumeral joint was stable. There did appear to be a small rotator cuff tear that could be visualized from glenohumeral side. I performed an arthroscopic biceps tenotomy. The residual labrum was again probed and found be stable. Instruments now removed from the glenohumeral joint. Utilizing the posterior working portal site, the trocar and cannula were inserted into the subacromial space. Arthroscopy initiated. I made an incision 2 fingerbreadths lateral to the acromion. I introduced my trocar followed by my [employer] ablator. I now began ablating thick subacromial bursal tissue, which exposed the undersurface of the anterior acromion. There was diminished subacromial space. There was a very prominent anterior acromion. A motorized bur was introduced and a subacromial decompression was performed. The before meals joint was visualized and noted to be only mildly arthritic. I turned my attention to the rotator cuff tendon. We noted a 1 cm tear along the anterior aspect the supraspinatus. I debrided those margins getting down to stable tendon tissue. The defect now measured 1.25 cm. I abraded the footprint with a motorized bur. I passed 2 everted mattress sutures through good bites of rotator cuff tendon. I punched a hole at the footprint for fixation. The sutures were passed through a 4.75 Arthrex anchor. The anchor eyelet was now placed into our pre-punch hole. I held anchor in position while Joo QUARLES tension the sutures and introduced anchor with good fixation noted. This gave us good compression of the tendon along the footprint. Residual suture limbs were clipped. There was a good stable repair. I injected 1 mL Renue intra- articular. Instruments now removed from the portal sites. All portal sites were approximated with nylon suture. Sterile dressings were applied followed by a shoulder immobilizer. Marshal QUARLES assisted in this complex case. The patient was awakened, transferred to a bed, and taken to recovery in stable condition.
[2018-09-09 12:02] VITALS: TEMP 97.8
[2018-09-09 12:20] LABS: Glucose,Whole Blood 199 mg/dL (75-99)
[2018-09-09 12:31] VITALS: RESP 16
[2018-09-09 13:43] VITALS: BP 130/95; PULSE 85
[2018-09-09 13:45] LABS: Glucose,Whole Blood 281 mg/dL (75-99)
== END 2018-09-09 13:55 | disposition home or self-care (01) ==
LOC: OR 08:09
PROVIDERS: ATTEND Orthopaedic Surgery
DX: M75.101 Unspecified rotator cuff tear or rupture of right shoulder, not specified as traumatic (principal); M75.41 Impingement syndrome of right shoulder; S46.111A Strain of muscle, fascia and tendon of long head of biceps, right arm, initial encounter; X58.XXXA Exposure to other specified factors, initial encounter; M19.011 Primary osteoarthritis, right shoulder; E11.9 Type 2 diabetes mellitus without complications; Z79.4 Long term (current) use of insulin
CPT/HCPCS: 64415; 29827; 29826; C1713 ×2; C1765; J2250; J1100; J2405; J2001; J3010; J2795; J2704; J0690

== ENCOUNTER 2018-12-22 14:12 | Emergency (ER) | payer MEDICAID, OTHER ==
[2018-12-22] MEDS ORDERED: SODIUM CHLORIDE 0.9% 1,000 ML IV STA ×2 (15:26)
[2018-12-22 15:48] LABS: Basophils % (A) 0 %; Eosinophils # (A) 0.3 k/uL (0-0.7); Eosinophils % (A) 4 %; HCT 47.2 % (34.0-46.0); HGB 16.5 gm/dL (11.4-16.0); Lymphocytes # (A) 2.5 k/uL (1.0-4.8); Lymphocytes % (A) 30 %; MCH 28.9 pg (25.0-35.0); MCHC 34.8 g/dL (31.0-37.0); MCV 83.1 fL (80.0-100.0); Mean Platelet Volume 8.3; Monocytes # (A) 0.3 k/uL (0-1.0); Monocytes % (A) 4 %; Neutrophils % (A) 61 %; Platelet Count 312 k/uL (150-450); RBC 5.69 m/uL (3.80-5.40); RDW 13.4 % (11.5-15.5); WBC 8.3 k/uL (3.8-10.6)
[2018-12-22 16:04] LABS: ALT 41 U/L (9-52); AST 31 U/L (14-36); Albumin 4.7 g/dL (3.5-5.0); Alkaline Phosphatase 123 U/L (38-126); Amylase 43 U/L (30-110); Anion Gap 15 mmol/L; Blood Urea Nitrogen 10 mg/dL (7-17); Calcium 10.4 mg/dL (8.4-10.2); Carbon Dioxide 22 mmol/L (22-30); Chloride 102 mmol/L (98-107); Glucose 281 mg/dL (74-99); Lipase 75 U/L (23-300); Potassium 4.1 mmol/L (3.5-5.1); Sodium 139 mmol/L (137-145); Total Bilirubin 0.5 mg/dL (0.2-1.3); Total Protein 7.9 g/dL (6.3-8.2)
[2018-12-22 16:11] LABS: Appearance,Urine Clear (Clear); Bilirubin,Urine Negative (Negative); Blood,Urine Small (Negative); Color,Urine Light Yellow; Glucose,Urine (UA) 4+ (Negative); Ketones,Urine Negative (Negative); Leukocyte Esterase,Urine Negative (Negative); Mucus,Urine Rare /hpf; Nitrite,Urine Negative (Negative); PH, Urine 5.5 (5.0-8.0); Protein,Urine Trace (Negative); RBC,Urine 2 /hpf (0-5); Specific Gravity,Urine 1.035 (1.001-1.035); Squamous Epithelial Cell,Urine 1 /hpf (0-4); Urobilinogen,Urine <2.0 mg/dL (<2.0)
[2018-12-22 16:39] LABS: Glucose,Whole Blood 214 mg/dL (75-99)
--- NOTE | 2018-12-22 16:55 | ED ---
General Adult HPI - General Chief complaint: Nausea/Vomiting/Diarrhea Stated complaint: High blood sugar Time Seen by Provider: 12/22/18 15:15 Source: patient, RN notes reviewed Limitations: no limitations - History of Present Illness Initial comments: Patient is a 38-year-old female presented to the emergency room today with a chief complaint of increased nausea vomiting, diarrhea. She states that the symptoms started last few days. Patient does admit still feeling nauseated and no vomiting today. Does admit that she had some diarrhea yesterday. Patient was concerned that she is diabetic. Patient states that she had positive ketones on a ketone stick at home which showed moderate. She is worried about possible DKA. Patient denies any other complaints or symptoms. Patient denies any recent fever, chills, shortness of breath, chest pain, back pain, abdominal pain, numbness or tingling, dysuria or hematuria, or any other complaints. - Related Data Home Medications Medication Instructions Recorded Confirmed Metoclopramide [Reglan] 10 mg PO ACHS 08/17/18 12/22/18 Atorvastatin [Lipitor] 20 mg PO HS 12/22/18 12/22/18 INSULIN LISPRO (HumaLOG) [HumaLOG] See Protocol SQ ACHS 12/22/18 12/22/18 Previous Rx's Medication Instructions Recorded Ondansetron Odt [Zofran ODT] 4 mg PO Q8HR PRN #20 tab 12/22/18 Allergies Allergy/AdvReac Type Severity Reaction Status Date / Time clindamycin Allergy Anaphylaxis Verified 12/22/18 16:31 Review of Systems ROS Statement: Those systems with pertinent positive or pertinent negative responses have been documented in the HPI. ROS Other: All systems not noted in ROS Statement are negative. 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, VRE Date of last positivie culture/infection: 10/2017 MDRO Source:: urine Past Surgical History: Hysterectomy, Orthopedic Surgery, Tubal Ligation Additional Past Surgical History / Comment(s): E-P study l knee shoulder Past Anesthesia/Blood Transfusion Reactions: No Reported Reaction Past Psychological History: No Psychological Hx Reported Smoking Status: Never smoker Past Alcohol Use History: None Reported Past Drug Use History: None Reported - Past Family History Mother Family Medical History: Cancer Father Family Medical History: Liver Disease General Exam - General Exam Comments Initial Comments: General: The patient is awake and alert, in no distress, and does not appear acutely ill. Eye: There is normal conjunctiva bilaterally. No signs of icterus. Ears, nose, mouth and throat: There are moist mucous membranes and no oral lesions. Neck: The neck is supple, there is no tenderness or JVD. Cardiovascular: There is a regular rate and rhythm. No murmur, rub or gallop is appreciated. Respiratory: Lungs are clear to auscultation, respirations are non-labored, breath sounds are equal. No wheezes, stridor, rales, or rhonchi. Gastrointestinal: Soft nontender. Musculoskeletal: Normal ROM, no tenderness. Neurological: A&O x 3. CN II-XII intact, There are no obvious motor or sensory deficits. Coordination appears grossly intact. Speech is normal. Skin: Skin is warm and dry and no rashes or lesions are noted. Psychiatric: Cooperative, appropriate mood & affect, normal judgment. Limitations: no limitations Course Vital Signs 12/22/18 14:18 Temperature 98.3 F Pulse Rate 119 H Respiratory 18 Rate Blood Pressure 164/108 O2 Sat by Pulse 97 Oximetry Medical Decision Making - Medical Decision Making Patient's labs been reviewed here in emergency room. Negative acetone. Patient was 4+ ketones in her urine. Blood sugar 281. Repeat Accu-Chek was 214. Patient was given 2 L of fluids. He did ask if she wanted us to give her insulin here she states that she will check at home and take her own. She is feeling much better will be discharged home with nausea medication. - Lab Data Result diagrams: 12/22/18 15:20 12/22/18 15:20 Lab Results 12/22/18 12/22/18 12/22/18 Range/Units 15:20 15:20 15:45 WBC 8.3 (3.8-10.6) k/uL RBC 5.69 H (3.80-5.40) m/uL Hgb 16.5 H (11.4-16.0) gm/dL Hct 47.2 H (34.0-46.0) % MCV 83.1 (80.0-100.0) fL MCH 28.9 (25.0-35.0) pg MCHC 34.8 (31.0-37.0) g/dL RDW 13.4 (11.5-15.5) % Plt Count 312 (150-450) k/uL Neutrophils % 61 % Lymphocytes % 30 % Monocytes % 4 % Eosinophils % 4 % Basophils % 0 % Neutrophils # 5.0 (1.3-7.7) k/uL Lymphocytes # 2.5 (1.0-4.8) k/uL Monocytes # 0.3 (0-1.0) k/uL Eosinophils # 0.3 (0-0.7) k/uL Basophils # 0.0 (0-0.2) k/uL Sodium 139 (137-145) mmol/L Potassium 4.1 (3.5-5.1) mmol/L Chloride 102 (98-107) mmol/L Carbon Dioxide 22 (22-30) mmol/L Anion Gap 15 mmol/L BUN 10 (7-17) mg/dL Creatinine 0.47 L (0.52-1.04) mg/dL Est GFR (CKD-EPI)AfAm >90 (>60 ml/min/1.73 sqM) Est GFR (CKD-EPI)NonAf >90 (>60 ml/min/1.73 sqM) Glucose 281 H (74-99) mg/dL POC Glucose (mg/dL) (75-99) mg/dL POC Glu Unit Educator ID Calcium 10.4 H (8.4-10.2) mg/dL Total Bilirubin 0.5 (0.2-1.3) mg/dL AST 31 (14-36) U/L ALT 41 (9-52) U/L Alkaline Phosphatase 123 (38-126) U/L Total Protein 7.9 (6.3-8.2) g/dL Albumin 4.7 (3.5-5.0) g/dL Amylase 43 (30-110) U/L Lipase 75 (23-300) U/L Urine Color Light Yellow Urine Appearance Clear (Clear) Urine pH 5.5 (5.0-8.0) Ur Specific Willard 1.035 (1.001-1.035) Urine Protein Trace H (Negative) Urine Glucose (UA) 4+ H (Negative) Urine Ketones Negative (Negative) Urine Blood Small H (Negative) Urine Nitrite Negative (Negative) Urine Bilirubin Negative (Negative) Urine Urobilinogen <2.0 (<2.0) mg/dL Ur Leukocyte Esterase Negative (Negative) Urine RBC 2 (0-5) /hpf Urine WBC 2 (0-5) /hpf Ur Squamous Epith Cells 1 (0-4) /hpf Urine Mucus Rare H (None) /hpf Acetone, Qual Negative (Negative) 12/22/18 Range/Units 16:34 WBC (3.8-10.6) k/uL RBC (3.80-5.40) m/uL Hgb (11.4-16.0) gm/dL Hct (34.0-46.0) % MCV (80.0-100.0) fL MCH (25.0-35.0) pg MCHC (31.0-37.0) g/dL RDW (11.5-15.5) % Plt Count (150-450) k/uL Neutrophils % % Lymphocytes % % Monocytes % % Eosinophils % % Basophils % % Neutrophils # (1.3-7.7) k/uL Lymphocytes # (1.0-4.8) k/uL Monocytes # (0-1.0) k/uL Eosinophils # (0-0.7) k/uL Basophils # (0-0.2) k/uL Sodium (137-145) mmol/L Potassium (3.5-5.1) mmol/L Chloride (98-107) mmol/L Carbon Dioxide (22-30) mmol/L Anion Gap mmol/L BUN (7-17) mg/dL Creatinine (0.52-1.04) mg/dL Est GFR (CKD-EPI)AfAm (>60 ml/min/1.73 sqM) Est GFR (CKD-EPI)NonAf (>60 ml/min/1.73 sqM) Glucose (74-99) mg/dL POC Glucose (mg/dL) 214 H (75-99) mg/dL POC Glu Unit Educator ID Fish, Terra Calcium (8.4-10.2) mg/dL Total Bilirubin (0.2-1.3) mg/dL AST (14-36) U/L ALT (9-52) U/L Alkaline Phosphatase (38-126) U/L Total Protein (6.3-8.2) g/dL Albumin (3.5-5.0) g/dL Amylase (30-110) U/L Lipase (23-300) U/L Urine Color Urine Appearance (Clear) Urine pH (5.0-8.0) Ur Specific Willard (1.001-1.035) Urine Protein (Negative) Urine Glucose (UA) (Negative) Urine Ketones (Negative) Urine Blood (Negative) Urine Nitrite (Negative) Urine Bilirubin (Negative) Urine Urobilinogen (<2.0) mg/dL Ur Leukocyte Esterase (Negative) Urine RBC (0-5) /hpf Urine WBC (0-5) /hpf Ur Squamous Epith Cells (0-4) /hpf Urine Mucus (None) /hpf Acetone, Qual (Negative) Disposition Clinical Impression: Nausea vomiting and diarrhea Disposition: HOME SELF-CARE Condition: Good Instructions (If sedation given, give patient instructions): Acute Nausea and Vomiting (ED) Additional Instructions: Please use medication as discussed. Please follow-up with family doctor in the next 2 days of symptoms have not improved. Please return to emergency room if the symptoms increase or worsen or for any other concerns. Prescriptions: Ondansetron Odt [Zofran ODT] 4 mg PO Q8HR PRN #20 tab PRN Reason: Nausea Is patient prescribed a controlled substance at d/c from ED?: No Referrals: Gayle Rouse MD [Primary Care Provider] - 1-2 days Time of Disposition: 16:54
[2018-12-22 17:57] VITALS: BP 139/92; PULSE 82; RESP 19; TEMP 98.5
== END 2018-12-22 17:57 | disposition home or self-care (01) ==
LOC: EC 14:12
DX: R11.2 Nausea with vomiting, unspecified (principal); R19.7 Diarrhea, unspecified; E11.9 Type 2 diabetes mellitus without complications; Z79.4 Long term (current) use of insulin; Z79.899 Other long term (current) drug therapy; Z88.1 Allergy status to other antibiotic agents
CPT/HCPCS: 36415; 80053; 81001; 82009; 82150; 83690; 85025; 96360; 96361; 99284

== ENCOUNTER → 2019-05-31 | Outpatient (CLI) | payer OTHER ==
--- NOTE | 2019-06-02 09:27 | MM ---
Reason for exam: screening (asymptomatic). Last mammogram was performed 3 years and 5 months ago. History: Patient is postmenopausal. Family history of breast cancer in maternal grandmother at age 39 and breast cancer in maternal aunt at age 49. Physical Findings: A clinical breast exam by your physician is recommended on an annual basis and results should be correlated with mammographic findings. MG 3D Screening Mammo W/Cad Bilateral CC and MLO view(s) were taken. Prior study comparison: December 20, 2015, bilateral MG 3d diag mammo w/cad [facility]. There are scattered fibroglandular densities. No significant changes when compared with prior studies. ASSESSMENT: Negative, BI-RAD 1 RECOMMENDATION: Routine screening mammogram of both breasts in 1 year.
== END | disposition home or self-care (01) ==
LOC: RADMAMWWP 15:01
PROVIDERS: ATTEND Family Medicine
DX: Z12.31 Encounter for screening mammogram for malignant neoplasm of breast (principal)
CPT/HCPCS: 77063; 77067

== ENCOUNTER 2019-06-15 08:39 | Day surgery (SDC) | payer OTHER ==
[2019-06-11 14:23] VITALS: BMI 34.9
[~2019-06-15 08:39] MED LIST changes: +DEXAMETHASONE SOD PHOSPHATE 10 MG/ML 1 ML VIAL IV ONE; +HEPARIN SODIUM,PORCINE 5,000 UNIT/ML 1 ML VIAL SQ ONE; -HYDROmorphone 1 MG/ML 1 ML SYRINGE IVP PRN; +LIDOCAINE 1% 20 ML VIAL (10MG/ML) FOR IV START INTRADERMA PRN; +MIDAZOLAM 2 MG/2 ML VIAL IV PRN; +ONDANSETRON 4 MG/2 ML VIAL IVP ONE; +SCOPOLAMINE 1.5MG/72HR PATCH TRANSDERM ONE; -ceFAZolin IN SWFI 2 GM/20 ML SYRINGE IVP ONE
[2019-06-15 09:14] LABS: Glucose,Whole Blood 173 mg/dL (75-99)
--- NOTE | 2019-06-15 10:11 | P.GSHP ---
History of Present Illness H&P Date: 06/15/19 Chief Complaint: Right quadrant pain This a 39-year-old female who presents today for laparoscopic cholecystectomy. Patient's had chronic complaints of right quadrant pain and nausea. She's had a HIDA scan performed which shows abnormal ejection fraction. 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, VRE Date of last positivie culture/infection: 10/2017 MDRO Source:: urine Past Surgical History: Hysterectomy, Orthopedic Surgery, Tubal Ligation Additional Past Surgical History / Comment(s): E-P study , l knee shoulder Past Anesthesia/Blood Transfusion Reactions: No Reported Reaction Smoking Status: Never smoker - Past Family History Mother Family Medical History: Cancer Father Family Medical History: Liver Disease Medications and Allergies Home Medications Medication Instructions Recorded Confirmed Type INSULIN LISPRO (HumaLOG) [HumaLOG] See Protocol SQ ACHS 12/22/18 06/15/19 History Allergies Allergy/AdvReac Type Severity Reaction Status Date / Time clindamycin Allergy Anaphylaxis Verified 06/11/19 14:16 Surgical - Exam Vital Signs Temp Pulse Resp BP Pulse Ox 97.3 F L 83 16 154/85 98 06/15/19 08:57 06/15/19 08:57 06/15/19 08:57 06/15/19 08:57 06/15/19 08:57 - General well developed, well nourished, no distress - Eyes PERRL - ENT normal pinna - Neck no masses - Respiratory normal expansion - Cardiovascular Rhythm: regular - Abdomen Abdomen: soft, non tender Results - Labs Abnormal Lab Results - Last 24 Hours (Table) 06/15/19 Range/Units 09:13 POC Glucose (mg/dL) 173 H (75-99) mg/dL Assessment and Plan Assessment: Abnormal HIDA scan Chronic cholecystitis We'll perform laparoscopic cholecystectomy.
[2019-06-15] MEDS ORDERED: LIDOCAINE 1% INJ 10MG/ML (20 ML MDV) ONE (10:20)
[2019-06-15] MEDS ORDERED: NEOSTIGMINE 1 MG/ML 10 ML VIAL ONE (10:20)
[2019-06-15] MEDS ORDERED: GLYCOPYRROLATE 0.2 MG/ML 2 ML VIAL ONE (10:20)
[2019-06-15] MEDS ORDERED: MIDAZOLAM 2 MG/2 ML VIAL ONE (10:20)
[2019-06-15] MEDS ORDERED: SUCCINYLCHOLINE CHLORIDE 100 MG/5 ML SYR IV ONE (10:20)
[2019-06-15] MEDS ORDERED: PROPOFOL 10 MG/ML 20 ML VIAL IV ONE (10:20)
[2019-06-15] MEDS ORDERED: VECURONIUM 10 MG VIAL IV ONE (10:20)
[2019-06-15] MEDS ORDERED: fentaNYL (PF) 50 MCG/ML 2 ML AMP ONE (10:20)
[2019-06-15] MEDS ORDERED: BUPIVACAINE (PF) 0.5% 30 ML VIAL SQ ONE (11:03)
[2019-06-15] MEDS ORDERED: LACTATED RINGERS 1,000 ML IV ONE (11:19)
--- NOTE | 2019-06-15 11:25 | P.OP ---
Date of Procedure: 06/15/19 Preoperative Diagnosis: Cholecystitis Postoperative Diagnosis: Cholecystitis Procedure(s) Performed: Laparoscopic cholecystectomy Anesthesia: SARAH Surgeon: Saul Stanford Estimated Blood Loss (ml): 5 Pathology: other (Gallbladder) Condition: stable Disposition: PACU Description of Procedure: The patient was placed on the operating table. The patient received a general endotracheal tube anesthesia. The patients abdomen was prepped and draped in the usual sterile fashion. Through an infraumbilical stab incision, the fascia of the anterior abdominal wall was grasped with a pair of Kochers and then the Veress needle was placed in the peritoneal cavity. Position of the Veress needle was confirmed with positive drop test. The abdomen was then insufflated. After adequate insufflation, the 10 mm trocar was placed in the peritoneal cavity. Following this the laparoscope was placed in the peritoneal cavity. The patient was placed in the head-up, right side up position and then a 5 mm trocar was placed in the right lateral and right subcostal position under direct visualization. A 8 mm trocar was placed in the epigastric position. The gallbladder was grasped in the fundus and infundibulum. Traction on the gallbladder was placed in the lateral and the cephalad positions. The triangle of Calot was visualized.. The cystic duct was bluntly dissected until the union of the cystic duct and common bile duct was seen. A critical view of safety was achieved. The cystic duct was then divided and sealed with the Harmonic scissors. A PDS Endoloop was then placed throughout the cystic duct stump. The cystic artery divided and sealed with the Harmonic scissors. The gallbladder was then removed from the liver bed using Harmonic scissors. The gallbladder was then extracted through the epigastric port site. Operative field was checked for any bleeding spots and Harmonic scissors was used to coagulate the liver bed. The abdomen was irrigated. The trocars were removed. The skin was closed using interrupted 3-0 Vicryl suture. Dermabond dressing were applied. The patient tolerated the procedure well.
[2019-06-15 11:42] VITALS: TEMP 97.1
[2019-06-15] MEDS ORDERED: KETOROLAC 30 MG/ML 1 ML VIAL IVP ONE (11:58)
[2019-06-15] MEDS: HYDROmorphone 0.5 MG/0.5 ML SYRINGE IVP PRN ×2 (12:03→12:14)
[2019-06-15] MEDS ORDERED: INSULIN ASPART (NovoLOG) 100 UNIT/ML VIAL SQ ONE ×2 (12:14→13:28)
[2019-06-15 12:30] LABS: Glucose,Whole Blood 219 mg/dL (75-99)
[2019-06-15 13:03] LABS: Glucose,Whole Blood 243 mg/dL (75-99)
[2019-06-15] MEDS ORDERED: HYDROcodone/APAP 5-325MG 1 EACH TAB PO ONE (13:13)
[2019-06-15 13:39] VITALS: BP 145/83; PULSE 98; RESP 18
== END 2019-06-15 14:03 | disposition home or self-care (01) ==
LOC: OR 08:39
PROVIDERS: ATTEND Surgery
DX: K81.1 Chronic cholecystitis (principal); E11.9 Type 2 diabetes mellitus without complications; K21.9 Gastro-esophageal reflux disease without esophagitis; I45.6 Pre-excitation syndrome; Z88.1 Allergy status to other antibiotic agents; Z79.4 Long term (current) use of insulin; Z79.899 Other long term (current) drug therapy; Z98.890 Other specified postprocedural states
CPT/HCPCS: 47562; 88304; J2250; J1644; J1100; J2710; J0690; J2405; J2001; J3010; J1885; J0330; J2704; J1170

== ENCOUNTER → 2020-12-15 | Outpatient (CLI) | payer BC ==
--- NOTE | 2020-12-19 10:31 | MM ---
Reason for exam: screening (asymptomatic). Last mammogram was performed 1 year and 6 months ago. History: Patient is postmenopausal. Family history of breast cancer in maternal grandmother at age 39 and breast cancer in maternal aunt at age 49. Physical Findings: A clinical breast exam by your physician is recommended on an annual basis and results should be correlated with mammographic findings. MG 3D Screening Mammo W/Cad Bilateral CC and MLO view(s) were taken. Prior study comparison: May 31, 2019, bilateral MG 3d screening mammo w/cad. December 20, 2015, bilateral MG 3d diag mammo w/cad [facility]. There are scattered fibroglandular densities. No significant changes when compared with prior studies. ASSESSMENT: Negative, BI-RAD 1 RECOMMENDATION: Routine screening mammogram of both breasts in 1 year.
== END | disposition home or self-care (01) ==
LOC: RADMAMWWP 15:39
PROVIDERS: ATTEND Family Medicine
DX: Z12.31 Encounter for screening mammogram for malignant neoplasm of breast (principal)
CPT/HCPCS: 77063; 77067

== ENCOUNTER → 2020-12-28 | Outpatient (CLI) | payer BC | END | disposition home or self-care (01) | LOC: LABWHC1 09:41 | PROVIDERS: ATTEND Family Medicine | DX: R05 Cough (principal); R51.9 Headache, unspecified; R09.89 Other specified symptoms and signs involving the circulatory and respiratory systems | CPT/HCPCS: U0003; C9803 ==

== ENCOUNTER → 2021-11-14 | Outpatient (CLI) | payer BC ==
--- NOTE | 2021-11-15 02:58 | MR ---
EXAMINATION TYPE: MR angio neck wo/w con DATE OF EXAM: 11/14/2021 COMPARISON: None HISTORY: Headaches, pulsating tinnitis, and blurry vision. CONTRAST: Standard multiplanar, multisequence MRI departmental protocol images were obtained without contrast a nd with 8 mL intravenous Gadavist gadolinium contrast. There is arterial flow in the common internal and external carotid arteries bilaterally. There is art erial flow in both vertebral arteries. There is wide patency of the carotid artery bifurcations. Ther e is normal branching pattern of the great vessels on the aortic arch. There is arterial flow in both subclavian arteries which appear widely patent. Aortic arch appears intact. No aneurysm. IMPRESSION: Normal MR angiogram of the neck.
--- NOTE | 2021-11-15 03:06 | MR ---
EXAMINATION TYPE: MR brain wo con DATE OF EXAM: 11/14/2021 COMPARISON: 11/19/2011 HISTORY: Headaches, pulsating tinnitis, and blurry vision. Multiplanar multiecho imaging of the brain without contrast. Ventricles and sulci appear normal. There is no mass effect or midline shift. There is no sign of int racranial hemorrhage. Corpus callosum appears normal. Brainstem appears normal. There is no evidence of a posterior fossa mass. There are 3 or 4 small foci of increased signal at the stafford-white matter j unction of both cerebral hemispheres in the frontal and parietal lobes on the T2 and FLAIR images. Th steffany measure up to 3 mm. Sella turcica appears normal. There is no evidence of orbital mass. There is no evidence of a posterior fossa mass. There is normal signal pattern of the mastoid sinuses . IMPRESSION: There are a few tiny white matter high signal foci in the white matter as above of doubtful significa nce and not significantly changed compared to old exam.
== END | disposition home or self-care (01) ==
LOC: RADMRIMAIN 20:46
PROVIDERS: ATTEND Family Medicine
DX: R51.9 Headache, unspecified (principal); H93.A9 Pulsatile tinnitus, unspecified ear; H53.9 Unspecified visual disturbance
CPT/HCPCS: 70549; 70551; A9585

== ENCOUNTER → 2021-12-17 | Outpatient (CLI) | payer BC ==
--- NOTE | 2021-12-18 10:09 | MM ---
Reason for exam: screening (asymptomatic). Last mammogram was performed 1 year ago. History: Patient is postmenopausal. Family history of breast cancer in maternal grandmother at age 39 and breast cancer in maternal aunt at age 49. Physical Findings: A clinical breast exam by your physician is recommended on an annual basis and results should be correlated with mammographic findings. MG 3D Screening Mammo W/Cad Bilateral CC and MLO view(s) were taken. Prior study comparison: December 15, 2020, bilateral MG 3d screening mammo w/cad. May 31, 2019, bilateral MG 3d screening mammo w/cad. There are scattered fibroglandular densities. There are benign appearing round linear calcifications bilaterally. There is no discrete abnormality. ASSESSMENT: Benign, BI-RAD 2 RECOMMENDATION: Routine screening mammogram of both breasts in 1 year.
== END | disposition home or self-care (01) ==
LOC: RADMAMWWP 16:13
PROVIDERS: ATTEND Family Medicine
DX: Z12.31 Encounter for screening mammogram for malignant neoplasm of breast (principal); Z78.0 Asymptomatic menopausal state; Z80.3 Family history of malignant neoplasm of breast
CPT/HCPCS: 77063; 77067

== ENCOUNTER → 2023-01-24 | Outpatient (CLI) | payer BC ==
--- NOTE | 2023-01-27 19:00 | MM ---
Reason for Exam: Screening (asymptomatic). Last mammogram was performed 1 year(s) and 1 month(s) ago. Patient History: Menarche at age 10. First Full-Term at age 17. Left ovary removed at age 36. Right ovary removed at age 36. Hysterectomy at age 36. Postmenopausal. Maternal grandmother had breast cancer, age 39. Maternal aunt had breast cancer, age 49. Maternal aunt had breast cancer under age 50. Risk Values: Katelyn 5 year model risk: 0.6%. NCI Lifetime model risk: 7.1%. Prior Study Comparison: 05/31/2019 Bilateral Screening Mammogram, [facility]. 12/15/2020 Bilateral Screening Mammogram, [facility]. 12/17/2021 Bilateral Screening Mammogram, [facility]. Tissue Density: There are scattered fibroglandular densities. Findings: Analyzed By CAD. There is no suspicious group of microcalcifications or new suspicious mass in either breast. Overall Assessment: Negative, BI-RAD 1 Management: Screening Mammogram of both breasts in 1 year. 1. Patient should continue monthly self breast exams. 2. A clinical breast exam by your physician is recommended on an annual basis. 3. This exam should not preclude additional follow-up of suspicious palpable abnormalities. Electronically signed and approved by: Rosa Rincon M.D. Radiologist
== END | disposition home or self-care (01) ==
LOC: RADMAMWWP 16:51
PROVIDERS: ATTEND Family Medicine
DX: Z12.31 Encounter for screening mammogram for malignant neoplasm of breast (principal); Z78.0 Asymptomatic menopausal state; Z80.3 Family history of malignant neoplasm of breast
CPT/HCPCS: 77063; 77067

== ENCOUNTER → 2024-01-30 | Outpatient (CLI) | payer BC ==
--- NOTE | 2024-02-03 11:23 | MM ---
Reason for Exam: Screening (asymptomatic). Last screening mammogram was performed 12 month(s) ago. Patient History: Menarche at age 10. First Full-Term at age 17. Left ovary removed at age 36. Right ovary removed at age 36. Hysterectomy at age 36. Postmenopausal. Maternal grandmother had breast cancer, age 39. Maternal aunt had breast cancer, age 49. Maternal aunt had breast cancer, age 45. Maternal cousin had breast cancer, age 35. Risk Values: Katelyn 5 year model risk: 0.6%. NCI Lifetime model risk: 7.0%. Prior Study Comparison: 12/15/2020 Bilateral Screening Mammogram, [facility]. 12/17/2021 Bilateral Screening Mammogram, [facility]. 01/24/2023 Bilateral MG 3D screening mammo w/cad, [facility]. Tissue Density: The breasts are heterogeneously dense, which may obscure small masses. Findings: Analyzed By CAD. There is no suspicious group of microcalcifications or new suspicious mass in either breast. Benign calcifications. Overall Assessment: Benign, BI-RAD 2 Management: Screening Mammogram of both breasts in 1 year. . Patient should continue monthly self-breast exams. A clinical breast exam by your physician is recommended on an annual basis. This exam should not preclude additional follow-up of suspicious palpable abnormalities. Note on Katelyn scores and lifetime risk: 1. A Katelyn score greater than 3% is considered moderate risk. If this is the case, consider specialist referral to assess eligibility for a risk reducing agent. 2. If overall lifetime risk for the development of breast cancer is 20% or higher, the patient may qualify for future screening with alternating mammogram and breast MRI. Electronically signed and approved by: Rubens Lu M.D. Radiologis
== END | disposition home or self-care (01) ==
LOC: RADMAMWWP 08:17
PROVIDERS: ATTEND Family Medicine
DX: Z12.31 Encounter for screening mammogram for malignant neoplasm of breast (principal); Z78.0 Asymptomatic menopausal state; Z80.3 Family history of malignant neoplasm of breast
CPT/HCPCS: 77063; 77067

== ENCOUNTER → 2025-04-22 | Outpatient (CLI) | payer BC ==
--- NOTE | 2025-04-22 08:18 | MM ---
Reason for Exam: Screening (asymptomatic). Last mammogram was performed 1 year(s) and 3 month(s) ago. Patient History: Menarche at age 10. First Full-Term at age 17. Left ovary removed at age 36. Right ovary removed at age 36. Hysterectomy at age 36. Postmenopausal. Maternal grandmother had breast cancer, age 39. Maternal aunt had breast cancer, age 49. Maternal aunt had breast cancer, age 45. Maternal cousin had breast cancer, age 35. Risk Values: Katelyn 5 year model risk: 0.6%. NCI Lifetime model risk: 6.8%. Prior Study Comparison: 12/17/2021 Bilateral Screening Mammogram, [facility]. 01/24/2023 Bilateral MG 3D screening mammo w/cad, [facility]. 01/30/2024 Bilateral MG 3D screening mammo w/cad, [facility]. Tissue Density: There are scattered areas of fibroglandular density. Findings: Analyzed By CAD. There is no suspicious group of microcalcifications or new suspicious mass in either breast. Overall Assessment: Benign, BI-RAD 2 Management: Screening Mammogram of both breasts in 1 year. . Patient should continue monthly self-breast exams. A clinical breast exam by your physician is recommended on an annual basis. This exam should not preclude additional follow-up of suspicious palpable abnormalities. Note on Katelyn scores and lifetime risk: 1. A Katelyn score greater than 3% is considered moderate risk. If this is the case, consider specialist referral to assess eligibility for a risk reducing agent. 2. If overall lifetime risk for the development of breast cancer is 20% or higher, the patient may qualify for future screening with alternating mammogram and breast MRI. [facility], , 04/22/2025 8:15 AM. Electronically signed and approved by: Rubens Lu M.D. Radiologis
== END | disposition home or self-care (01) ==
LOC: RADMAMWWP 07:53
PROVIDERS: ATTEND Family Medicine
DX: Z12.31 Encounter for screening mammogram for malignant neoplasm of breast (principal); R92.323 Mammographic fibroglandular density, bilateral breasts; Z78.0 Asymptomatic menopausal state; Z80.3 Family history of malignant neoplasm of breast
CPT/HCPCS: 77063; 77067